=== PATIENT | male | born 1990 | race Caucasian/White ===

== ENCOUNTER 2017-05-06 03:24 | Emergency (ER) | payer BC, OTHER ==
[~2017-05-06] VITALS: Ht 172.7 cm; Wt 75.4 kg
[2017-05-06 03:27] VITALS: TEMP 36.6; Ht 172.7 cm; Wt 75.4 kg
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
[2017-05-06 03:53] VITALS: BP 120/72; PULSE 98; O2SAT 98
== END 2017-05-06 03:55 | disposition home or self-care (01) ==
LOC: C.EDB 03:25 → C.EDA 03:55
DX: S00.81XA Abrasion of other part of head, initial encounter (principal); S80.812A Abrasion, left lower leg, initial encounter; Y04.0XXA Assault by unarmed brawl or fight, initial encounter; F17.210 Nicotine dependence, cigarettes, uncomplicated

== ENCOUNTER 2023-07-01 16:18 | Inpatient (IN) ==
[2023-07-01 16:59] LABS: Basophils # (auto) 0.04 K/uL (0.00-0.20); Basophils % (auto) 0.4 %; Eosinophils # (auto) 0.09 K/uL (0.00-0.50); Eosinophils % (auto) 0.8 %; Hematocrit (blood only) 42.5 % (42.0-52.0); Hemoglobin 14.5 g/dl (14.0-18.0); Immature Granulocytes # (auto) 0.02 K/uL (0.01-0.20); Immature Granulocytes % (auto) 0.2 %; Lymphocytes # (auto) 2.23 K/uL (1.20-3.40); Mean Corpuscular Hemoglobin 29.2 pg (25.0-34.0); Mean Corpuscular Hgb Conc 34.1 g/dL (32.0-36.0); Mean Corpuscular Volume 85.5 fL (80.0-100.0); Mean Platelet Volume 10.4 fL (9.4-12.4); Monocytes # (auto) 0.59 K/uL (0.11-0.59); Monocytes % (auto) 5.6 %; Neutrophils # (auto) 7.66 K/uL (1.40-6.50); Platelet Count 215 K/uL (130-400); RDW Coefficient of Variation 13.7 % (11.5-14.5); RDW Standard Deviation 42.8 fL (36.4-46.3); Red Blood Count 4.97 M/uL (4.70-6.10); White Blood Count 10.63 K/ul (4.8-10.8)
[2023-07-01 17:18] LABS: Monotest Negative (Negative)
[2023-07-01 17:20] LABS: Albumin Globulin Ratio 1.6 (0.9-2); Albumin Level 4.5 gm/dl (3.4-5.0); BUN Creatinine Ratio 18.4 (10-20); Bilirubin,Total 0.3 mg/dl (0.2-1.0); Calcium 9.3 mg/dl (8.6-10.3); Creatinine Clr Calc Pharmacy 101.5 ml/min; Est GFR (African American) 112.5 ml/min; Globulin 2.8 gm/dl (2.5-4.0); Potassium 3.7 mmol/L (3.5-5.1); Total Protein 7.3 gm/dl (6.0-8.3)
[2023-07-01 17:31] LABS: Influenza A virus by PCR Negative (Neg); Influenza B virus by PCR Negative (Neg); RSV by PCR Negative (Neg); SARS CoV2 RNA(COVID-19) Ceph NEGATIVE (Negative)
[2023-07-01 17:44] LABS: Lyme Ab IgG w/WB Rflx Negative (Negative)
--- NOTE | 2023-07-01 17:48 | XRay Report ---
XR chest 1V not portable CLINICAL HISTORY: illness COMPARISON STUDY: Chest radiograph April 24, 2020. FINDINGS: Lung volumes are normal. Lungs are clear. There is no pneumothorax or pleural effusion. Car diac size is normal. Mediastinal contours are normal. There is no evidence for pulmonary edema. IMPRESSION: No acute cardiopulmonary findings. ACT 112: Negative or not required by law. Electronically signed by: Naeem Branham M.D. 07/01/2023 5:47 PM
--- NOTE | 2023-07-01 17:58 | Emergency Department Note ---
Impression & Plan Weakness, Anxiety, Lyme disease, Mood disorder ED Provider Note NAME: NELI ARZOLA AGE: 32 SEX: M : 1990 ARRIVES VIA: Walk-In INFORMANT: Patient ED PROVIDER(S): Johnny Gaines DO CHIEF COMPLAINT: weak and tired HPI: Patient is a 32-year-old male who presents to the ER following feeling weak and rundown. Symptoms of been present for the past 3 weeks. He notes he feels very anxious and stressed. Denies any headache or change in vision. No chest pain or shortness of breath. No belly pain, nausea, vomiting, or diarrhea. No dysuria, urgency or frequency. No other exacerbating or remitting factors. Patient questions if this is his Lyme's disease which she had once when he was 19. 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 No recent tick bites. PAST MEDICAL HISTORY:See Below PAST SURGICAL HISTORY:See Below FAMILY HISTORY:See Below SOCIAL HISTORY:See Below HOME MEDICATIONS:See Below ALLERGIES:See Below VITALS:See Below PHYSICAL EXAMINATION: GENERAL: Sitting up in bed, alert, well appearing, well nourished, no distress, non-toxic EYE EXAM: normal conjunctiva. PERRL and EOM's intact. OROPHARYNX: no exudate, no erythema, lips, buccal mucosa, and tongue normal and mucous membranes are moist NECK: supple, no nuchal rigidity, no adenopathy, non-tender LUNGS: Clear to auscultation. Normal chest wall mechanics HEART: no murmurs, S1 normal and S2 normal ABDOMEN: abdomen soft, non-tender, normo-active bowel sounds, no masses, no rebound or guarding. BACK: Back is symmetrical on inspection and there is no deformity, no midline tenderness, no CVA tenderness. SKIN: no rashes and no bruising UPPER EXTREMITIES: upper extremities are grossly normal. LOWER EXTREMITIES: No pitting edema. NEURO EXAM: Normal sensorium, cranial nerves II-XII intact, normal speech, no weakness of arms, no weakness of legs. No drift. Finger to nose intact. Gross sensation intact. MEDICAL DECISION MAKING: Patient is a 32-year-old male who presents ER for the above-stated complaint. IV was established blood work was obtained. Labs show no significant leukocytosis or anemia. BMP along with LFTs bilirubin was unremarkable. UA was clean. Doxycycline was given due to the equivocal IgM with the diffuse myalgias and arthralgias. He is also having hallucinations and does not want to come in from a psychiatric standpoint. He was discussed with 3 S. and admitted for further work-up. Will continue doxycycline 100 mg twice a day for 10 days with the equivocal Lyme testing. Triage Nursing notes reviewed. Limited review of prior medical records performed Vital Signs: reviewed and remarkable for no significant abnormalities Differential diagnosis: Infection, dehydration, metabolic abnormality, hypo/hyperglycemia, electrolyte disturbance, anemia, hypoxia, cardiac sources, intracerebral event, toxicologic, neurologic, as well as other pathologies. ER treatment provided: See below Diagnostics interpreted by me include EKG and cardiac monitoring as listed belo w: -Cardiac Monitoring: An order was placed for continuous cardiac monitoring. The monitor shows a rate of 70 with sinus rhythm. -ECG: none -Laboratory studies:Interpreted by me as stated above in MDM and shown below. Imaging studies: Xrays: As interpreted by me: Portable AP upright 1 view chest shows no focal infiltrate CTs show: none Consultation(s): As described in MDM Procedures:none Critical Care: None Past Med/Surg History Medical History Anxiety History of substance abuse in remission Family History Other Family history non-contributory Social History Smoking Status: Never smoker Tobacco Type: Cigarettes Preferred Language: Welsh Feels Safe at Home: Yes Gender Identity: Male Allergies Allergies Allergy/AdvReac Type Severity Reaction Status Date / Time naloxone AdvReac Severe shortness Unverified 08/14/20 21:27 of breath/rash Home Meds Home Medications Medication Instructions Recorded Confirmed buprenorphine HCl 8 mg sublingual 24 mg sublingual DAILY 04/23/20 07/01/23 tablet acetaminophen 325 mg tablet 650 mg PO QID PRN Pain 08/14/20 07/01/23 Previous Rx's Medication Instructions Recorded hydroxyzine HCl 25 mg tablet 25 mg PO TID PRN anxiety #14 tabs 06/29/23 doxycycline hyclate 100 mg tablet 100 mg PO BID 10 days #20 tabs 07/01/23 Results & Data (ED) Vital Signs Vital Signs - 24 hr 07/01/23 16:28 07/01/23 17:14 07/01/23 20:46 Temperature 36.3 C L Temperature Source Temporal Artery Scan Pulse Rate 75 Pulse Rate [Finger] 76 67 Respiratory Rate 16 18 Respiratory Effort / Characteristics Non-Labored Respiratory Depth Normal Blood Pressure 158/85 H Blood Pressure [Left Arm] 154/88 H 160/100 H Blood Pressure Mean 109 Blood Pressure Mean [Left Arm] 110 120 Blood Pressure Position [Left Arm] Lying Pulse Oximetry 97 99 100 Oxygen Delivery Method Room Air Room Air Room Air Sepsis Recent Fever Within 48 Hours No Sepsis New/Unexplained Change in Mental Status No Sepsis Action Taken by Nursing No Action Required 07/01/23 23:28 Temperature Temperature Source Pulse Rate Pulse Rate [Finger] Respiratory Rate Respiratory Effort / Characteristics Respiratory Depth Blood Pressure Blood Pressure [Left Arm] Blood Pressure Mean Blood Pressure Mean [Left Arm] Blood Pressure Position [Left Arm] Pulse Oximetry Oxygen Delivery Method Room Air Sepsis Recent Fever Within 48 Hours Sepsis New/Unexplained Change in Mental Status Sepsis Action Taken by Nursing Laboratory Data 07/01/23 16:40 07/01/23 16:40 Lab Results 07/01/23 07/01/23 07/01/23 Range/Units 16:38 16:40 16:40 WBC 10.63 (4.8-10.8) K/ul RBC 4.97 (4.70-6.10) M/uL Hgb 14.5 (14.0-18.0) g/dl Hct 42.5 (42.0-52.0) % MCV 85.5 (80.0-100.0) fL MCH 29.2 (25.0-34.0) pg MCHC 34.1 (32.0-36.0) g/dL RDW Std Deviation 42.8 (36.4-46.3) fL RDW Coeff of Vidya 13.7 (11.5-14.5) % Plt Count 215 (130-400) K/uL MPV 10.4 (9.4-12.4) fL Immature Gran % (Auto) 0.2 % Neut % (Auto) 72.0 % Lymph % (Auto) 21.0 % [place] % (Auto) 5.6 % Eos % (Auto) 0.8 % Baso % (Auto) 0.4 % Neut # (Auto) 7.66 H (1.40-6.50) K/uL Lymph # (Auto) 2.23 (1.20-3.40) K/uL [place] # (Auto) 0.59 (0.11-0.59) K/uL Eos # (Auto) 0.09 (0.00-0.50) K/uL Baso # (Auto) 0.04 (0.00-0.20) K/uL Immature Gran # (Auto) 0.02 (0.01-0.20) K/uL Sodium (136-145) mmol/L Potassium (3.5-5.1) mmol/L Chloride (98-107) mmol/L Carbon Dioxide (21-32) mmol/L Anion Gap (3-11) BUN (6-23) mg/dl Creatinine (0.6-1.4) mg/dl Est Cr Clr Drug Dosing ml/min Est GFR ( Amer) ml/min Est GFR (Non-Af Amer) ml/min BUN/Creatinine Ratio (10-20) Glucose (70-99(Fasting)) mg/dl Calcium (8.6-10.3) mg/dl Total Bilirubin (0.2-1.0) mg/dl AST (13-39) U/L ALT (7-52) U/L Alkaline Phosphatase (34-104) U/L Total Protein (6.0-8.3) gm/dl Albumin (3.4-5.0) gm/dl Globulin (2.5-4.0) gm/dl Albumin/Globulin Ratio (0.9-2) Urine Color Urine Appearance (Clear) Urine pH (4.5-7.5) Ur Specific [place] (1.000-1.030) Urine Protein (Negative) Urine Glucose (UA) (Negative) Urine Ketones (Negative) Urine Blood (Negative) Urine Nitrite (Negative) Urine Bilirubin (Negative) Urine Urobilinogen (Negative) Ur Leukocyte Esterase (Negative) Salicylates (3.0-30) mg/dl Urine Opiates Screen (Neg) Ur Methadone, Qual (Neg) Acetaminophen (10-30) ug/ml Urine Barbiturates (Neg) Ur Phencyclidine (PCP) (Neg) U Amphetamin/Meth Scrn (Neg) MDMA (Ecstasy) Screen (Neg) U Benzodiazepines Scrn (Neg) Ur Cocaine Metabolite (Neg) U Marijuana (THC) Screen (Neg) Ethyl Alcohol mg/dL (<10.0) mg/dl Lyme Disease IgG Ab Negative (Negative) Lyme Disease IgM Ab Equivocal A (Negative) SARS-CoV-2 (PCR) NEGATIVE (Negative) Monoscreen Negative (Negative) Influenza Type A (PCR) Negative (Neg) Influenza Type B (PCR) Negative (Neg) RSV (RT-PCR) Negative (Neg) 07/01/23 07/01/23 07/01/23 Range/Units 16:40 19:24 19:24 WBC (4.8-10.8) K/ul RBC (4.70-6.10) M/uL Hgb (14.0-18.0) g/dl Hct (42.0-52.0) % MCV (80.0-100.0) fL MCH (25.0-34.0) pg MCHC (32.0-36.0) g/dL RDW Std Deviation (36.4-46.3) fL RDW Coeff of Vidya (11.5-14.5) % Plt Count (130-400) K/uL MPV (9.4-12.4) fL Immature Gran % (Auto) % Neut % (Auto) % Lymph % (Auto) % [place] % (Auto) % Eos % (Auto) % Baso % (Auto) % Neut # (Auto) (1.40-6.50) K/uL Lymph # (Auto) (1.20-3.40) K/uL [place] # (Auto) (0.11-0.59) K/uL Eos # (Auto) (0.00-0.50) K/uL Baso # (Auto) (0.00-0.20) K/uL Immature Gran # (Auto) (0.01-0.20) K/uL Sodium 137 (136-145) mmol/L Potassium 3.7 (3.5-5.1) mmol/L Chloride 102 (98-107) mmol/L Carbon Dioxide 28 (21-32) mmol/L Anion Gap 7 (3-11) BUN 19 (6-23) mg/dl Creatinine 1.03 (0.6-1.4) mg/dl Est Cr Clr Drug Dosing 101.5 ml/min Est GFR ( Amer) 112.5 ml/min Est GFR (Non-Af Amer) 97.0 ml/min BUN/Creatinine Ratio 18.4 (10-20) Glucose 99 (70-99(Fasting)) mg/dl Calcium 9.3 (8.6-10.3) mg/dl Total Bilirubin 0.3 (0.2-1.0) mg/dl AST 18 (13-39) U/L ALT 12 (7-52) U/L Alkaline Phosphatase 62 (34-104) U/L Total Protein 7.3 (6.0-8.3) gm/dl Albumin 4.5 (3.4-5.0) gm/dl Globulin 2.8 (2.5-4.0) gm/dl Albumin/Globulin Ratio 1.6 (0.9-2) Urine Color Yellow Urine Appearance Clear (Clear) Urine pH 7.5 (4.5-7.5) Ur Specific [place] 1.010 (1.000-1.030) Urine Protein Negative (Negative) Urine Glucose (UA) Negative (Negative) Urine Ketones Negative (Negative) Urine Blood Negative (Negative) Urine Nitrite Negative (Negative) Urine Bilirubin Negative (Negative) Urine Urobilinogen Negative (Negative) Ur Leukocyte Esterase Negative (Negative) Salicylates (3.0-30) mg/dl Urine Opiates Screen Neg (Neg) Ur Methadone, Qual Neg (Neg) Acetaminophen (10-30) ug/ml Urine Barbiturates Neg (Neg) Ur Phencyclidine (PCP) Neg (Neg) U Amphetamin/Meth Scrn Neg (Neg) MDMA (Ecstasy) Screen Neg (Neg) U Benzodiazepines Scrn Neg (Neg) Ur Cocaine Metabolite Neg (Neg) U Marijuana (THC) Screen Neg (Neg) Ethyl Alcohol mg/dL (<10.0) mg/dl Lyme Disease IgG Ab (Negative) Lyme Disease IgM Ab (Negative) SARS-CoV-2 (PCR) (Negative) Monoscreen (Negative) Influenza Type A (PCR) (Neg) Influenza Type B (PCR) (Neg) RSV (RT-PCR) (Neg) 07/01/23 07/01/23 Range/Units 20:31 20:31 WBC (4.8-10.8) K/ul RBC (4.70-6.10) M/uL Hgb (14.0-18.0) g/dl Hct (42.0-52.0) % MCV (80.0-100.0) fL MCH (25.0-34.0) pg MCHC (32.0-36.0) g/dL RDW Std Deviation (36.4-46.3) fL RDW Coeff of Vidya (11.5-14.5) % Plt Count (130-400) K/uL MPV (9.4-12.4) fL Immature Gran % (Auto) % Neut % (Auto) % Lymph % (Auto) % [place] % (Auto) % Eos % (Auto) % Baso % (Auto) % Neut # (Auto) (1.40-6.50) K/uL Lymph # (Auto) (1.20-3.40) K/uL [place] # (Auto) (0.11-0.59) K/uL Eos # (Auto) (0.00-0.50) K/uL Baso # (Auto) (0.00-0.20) K/uL Immature Gran # (Auto) (0.01-0.20) K/uL Sodium (136-145) mmol/L Potassium (3.5-5.1) mmol/L Chloride (98-107) mmol/L Carbon Dioxide (21-32) mmol/L Anion Gap (3-11) BUN (6-23) mg/dl Creatinine (0.6-1.4) mg/dl Est Cr Clr Drug Dosing ml/min Est GFR ( Amer) ml/min Est GFR (Non-Af Amer) ml/min BUN/Creatinine Ratio (10-20) Glucose (70-99(Fasting)) mg/dl Calcium (8.6-10.3) mg/dl Total Bilirubin (0.2-1.0) mg/dl AST (13-39) U/L ALT (7-52) U/L Alkaline Phosphatase (34-104) U/L Total Protein (6.0-8.3) gm/dl Albumin (3.4-5.0) gm/dl Globulin (2.5-4.0) gm/dl Albumin/Globulin Ratio (0.9-2) Urine Color Urine Appearance (Clear) Urine pH (4.5-7.5) Ur Specific [place] (1.000-1.030) Urine Protein (Negative) Urine Glucose (UA) (Negative) Urine Ketones (Negative) Urine Blood (Negative) Urine Nitrite (Negative) Urine Bilirubin (Negative) Urine Urobilinogen (Negative) Ur Leukocyte Esterase (Negative) Salicylates < 3.0 L (3.0-30) mg/dl Urine Opiates Screen (Neg) Ur Methadone, Qual (Neg) Acetaminophen < 3 L (10-30) ug/ml Urine Barbiturates (Neg) Ur Phencyclidine (PCP) (Neg) U Amphetamin/Meth Scrn (Neg) MDMA (Ecstasy) Screen (Neg) U Benzodiazepines Scrn (Neg) Ur Cocaine Metabolite (Neg) U Marijuana (THC) Screen (Neg) Ethyl Alcohol mg/dL < 10.0 (<10.0) mg/dl Lyme Disease IgG Ab (Negative) Lyme Disease IgM Ab (Negative) SARS-CoV-2 (PCR) (Negative) Monoscreen (Negative) Influenza Type A (PCR) (Neg) Influenza Type B (PCR) (Neg) RSV (RT-PCR) (Neg) Administered Medications Discontinued Medications Doxycycline Hyclate (Doxycycline Hyclate 100 Mg Cap) 100 mg PO NOW STA Stop: 07/01/23 19:13 Last Admin: 07/01/23 19:20 Dose: 100 mg Documented By: Imaging Data Radiologist's Impression: Chest X-Ray 07/01/23 16:33 XR chest 1V not portable CLINICAL HISTORY: illness COMPARISON STUDY: Chest radiograph April 24, 2020. FINDINGS: Lung volumes are normal. Lungs are clear. There is no pneumothorax or pleural effusion. Cardiac size is normal. Mediastinal contours are normal. There is no evidence for pulmonary edema. IMPRESSION: No acute cardiopulmonary findings. ACT 112: Negative or not required by law. Electronically signed by: Naeem Branham M.D. 07/01/2023 5:47 PM Discharge Plan Visit Data Chief Complaint: Illness Stated Complaint: FATIGUE, MENTAL FOG - LYME DISEASE ED Provider: Johnny Gaines Discharge Problem: Weakness, Anxiety, Lyme disease, Mood disorder Patient Disposition: Admitted As Inpatient Discharge Instructions Interventions: ED Discharge Assessment Last Done: 07/01/23 23:28
[2023-07-01 18:05] LABS: Lyme Ab IgM w/WB Rflx Equivocal (Negative)
[2023-07-01] MEDS ORDERED: DOXYCYCLINE HYCLATE 100 MG CAP PO STA (19:12)
[2023-07-01 19:32] LABS: Appearance Urine Clear (Clear); Bilirubin Urine Negative (Negative); Blood Urine Negative (Negative); Color Urine Yellow; Glucose Urine UA Negative (Negative); Ketones Urine Negative (Negative); Leukocyte Esterase Urine Negative (Negative); Nitrite Urine Negative (Negative); Protein Urine Negative (Negative); Urobilinogen Urine Negative (Negative); pH Urine 7.5 (4.5-7.5)
[2023-07-01 20:56] LABS: Amphetamines+Metham, Urine Neg (Neg); Barbiturates, Urine Neg (Neg); Benzodiazepine, Urine Neg (Neg); Cocaine, Urine Neg (Neg); MDMA (Ecstacy), Urine Neg (Neg); Methadone, Urine Neg (Neg); Opiate, Urine Neg (Neg); Phencyclidine, Urine Neg (Neg)
[2023-07-01 21:26] LABS: Acetaminophen < 3 ug/ml (10-30); Salicylate < 3.0 mg/dl (3.0-30)
[2023-07-01] MEDS ORDERED: SODIUM CHLORIDE 0.65% NA SOLN 45 ML (OCEAN) PRN (23:59)
[2023-07-01] MEDS ORDERED: ALUMINUM/MAGNESIUM SUSP 30 ML UDC PO PRN (23:59)
[2023-07-01] MEDS ORDERED: MAGNESIUM HYDROXIDE SUSP 30 ML UDC PO PRN (23:59)
[2023-07-01] MEDS ORDERED: BISMUTH SUBSALICYLATE LIQD 236 ML PO PRN (23:59)
[2023-07-01] MEDS ORDERED: ACETAMINOPHEN 325 MG TAB PO PRN (23:59)
[2023-07-02] MEDS ORDERED: cloNIDine HCL 0.1 MG TAB PO STA (00:02)
[2023-07-02] MEDS ORDERED: NICOTINE POLACRILEX 2 MG GUM MT PRN (02:21)
[2023-07-02] MEDS: NICOTINE 21 MG/24 HR TDSY TD SCH (10:42)
[2023-07-02] MEDS: hydrOXYzine HCl 25 MG TAB PO PRN ×2 (10:43→20:59)
--- NOTE | 2023-07-02 13:13 | History & Physical ---
Date of Service July 02, 2023 Impression / Recommendations Impression 32 y/o man with a history of opioid use disorder on buprenorphine maintenance and methamphetamine use disorder abstinent for 5 months but no other psychiatric history who presents with ideas of reference, delusions that specific others "aren't real" (but not that those people when he sees them are impostors, so not actually a Capgras-type delusion), and preoccupation with a belief that Lyme disease has affected his brain (which given his history of previous infection and current work as a technician terminal and repeater cannot be ruled out as true). All available data supports that he has not used stimulants or other substances that could precipitate psychosis recently. He exhibits fairly good insight into the likelihood that his beliefs and concerns aren't supported by reality and as a result does not feel impelled to act on them. At this point the differential diagnostic possibilities abound and range from primary thought disorders such as schizophreniform disorder, through delusional disorder or brief reactive psychosis, to organic brain syndromes (including Lyme borreliosis). Although he doesn't present as at all manic or significantly depressed, his impulsively lending his car to a stranger is noteworthy and could indicate a mood disorder with psychotic features. The use of psychoactive substances not reported on our toxicology screen cannot be ruled out. He may already be exhibiting a response to risperidone given on arrival to the unit. (1) Unspecified psychosis not due to a substance or known physiological condition: (2) Opioid use disorder, moderate, in early remission, on maintenance therapy, dependence: (3) Methamphetamine use disorder, severe, in early remission, dependence: Plan The patient was admitted to the [facility] ([facility] unit) on q15 min checks (behavioral with suicide precautions) for safety. The patient will participate in group, recreational, and milieu therapies and will be offered additional individual and family sessions as clinically appropriate. * risperidone 1 mg QHS * labs in addition to those already done in the ED to rule out identifiable and potentially-reversible causes of psychosis, including * RPR * HIV * ESR * ceruloplasmin * gliadin antibodies * folate * B12 * vitamin D * labs to establish baseline values in anticipation of future antipsychotic use, including * fasting lipids panel * glycohemoglobin level Inventory Assets Strengths: supportive relationships, has local supports,voluntary, fair insight, i ntelligent, employed, Needs: safety and stabilization, diagnostic assessment for recent-onset psychosis, medication adjustment, additional coping skills Suicide Risk Level Suicide Risk Level: Moderate (q15 min suicide checks) Suicide Risk Level Comments: denies any suicidal thoughts; behavior prior to admission appears to have been unpredictable and impulsive Risk Factors Assessment Male: Yes : Yes Do You Have Access To A Gun?: No Health Problems: No Mental Health Diagnoses: No Substance Use Disorders: Yes Previous Attempt: No Family History of Suicide: No Previous Psychiatric Hospitalization: No Hopelessness: No Protective Factors Assessment : Yes (refers to girlfriend as his ) Responsible for Young Children: Yes Employed: Yes Stable Relationships: Yes Supportive Family: Yes Good Rapport with Provider: Yes Psychiatric History Identifying Data NELI ARZOLA is a 32-year-old M who currently lives with his girlfriend and their 4 children, including twins, has a history of methamphetamine and opioid use disorders, and was admitted on 07/01/23 23:01 on a 201 voluntary commitment for psychosis. Chief Complaint "I was feeling like my maybe isn't real". History of Present Illness As part of a thorough review of the available medical records, I have read and confirmed the following notes by the ED physicians on the day of admission and 2 days previously: 06/19/2023 "The patient is a pleasant 40-year-old gentleman with a past medical history of remote substance abuse on buprenorphine, history of anxiety who presents to the emergency department via walk-in, by security after the patient was upstairs in labor and delivery visiting with his partner who had delivered twins recently. Per bystanders the patient became acutely restless and confused and had made statements such as feeling as though the patient's partner was not the mother of the children and that his mother had been though she was present in the hospital room. Patient apparently had left the room abruptly and was encountered by security in the parking lot where they noted he had some peculiar behavior but it was not as severe as was described to them. He agreed to come to the emergency department for evaluation and upon evaluation by case management and this provider he had rapidly improved and exhibited rational thinking, insight into his condition. On my evaluation patient is well-appearing in no distress, afebrile with blood pressure 160s/90s and vital signs otherwise stable. He acknowledges underlying anxiety and restlessness. He denies any depression or hopelessness. In fact he feels hopeful that he can get his anxiety under control. He acknowledges that he may have felt additional stress related to the recent of twins. He does not feel he needs inpatient psychiatric t reatment. He is interested and was provided with outpatient resources for follow-up. Patient previously had been on medications but knowledges he did not continue follow-up for these but had been on hydroxyzine as well as Lexapro. We did agree to provide a short term prescription of hydroxyzine for flares of anxiety as needed. Otherwise, plan for continued outpatient follow-up. Psychiatric case advocate did complete evaluation and there is no indication for involuntary psychiatric treatment at this time." "Following the patient's discharge we were informed that in the process of the patient's erratic behavior and abruptly leaving the hospital he had given his car and car keys to an individual. Subsequently security had become involved and ensured that the patient's car was returned to him. Additionally, following the patient's discharge we were provided with more details from security regarding report from family and staff upstairs. They report that they were told that the patient became erratic and had made comments that were delusional and that he thought that his partner who had delivered the twins was not the twins mother after all. Additionally they reported that the patient insisted that his mother was but she was present in the room. Security confirms that when he comes the patient in the parking lot to bring him to the emergency department he appeared peculiar but did not have the severity of symptoms that was described to them. Moreover, upon our evaluation the emergency department the patient had rapidly improved and was appropriate and insightful. Thus, new information does not change assessment and that it was suspected that the patient experienced a stress reaction in the setting of underlying anxiety. Further, the patient was reported to have returned upstairs to visit with family." 07/01/2023: "Patient is a 32-year-old male who presents to the ER following feeling weak and rundown. Symptoms of been present for the past 3 weeks. He notes he feels very anxious and stressed. Denies any headache or change in vision. No chest pain or shortness of breath. No belly pain, nausea, vomiting, or diarrhea. No dysuria, urgency or frequency. No other exacerbating or remitting factors. Patient questions if this is his Lyme's disease which she had once when he was 19. 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 No recent tick bites. Labs show no significant leukocytosis or anemia. BMP along with LFTs bilirubin was unremarkable. UA was clean. Doxycycline was given due to the equivocal IgM with the diffuse myalgias and arthralgias. He is also having hallucinations and does not want to come in from a psychiatric standpoint. He was discussed with 3 S. and admitted for further work-up. Will continue doxycycline 100 mg twice a day for 10 days with the equivocal Lyme testing." and the following notes by the ED psychiatric human services case manager on the day of admission and 2 days previously: 06/29/2023: "Met with the patient to complete Brief and Suicide Risk Assessments. The patient denies any suicidal or homicidal ideations but reports high levels of anxiety where he feels overwhelmed and cant breathe. He reports a long trauma history related to his father not being around, being in a 14 year relationship where his girlfriend cheated on him and being in and out of group home for stealing. He reports he compares his current girlfriend to his previous one and feels regret and guilt about that as well as guilt for not being around his previous girlfriend due to being in and out of group home (states he cant blame her looking back for cheating on him). The patient reports he is looking for either a psychiatrist or psychologist who can help him get to the bottom of his trauma history and possibly start him on medication for his anxiety (reports having a counselor in the past but they never got too deep into his trauma history). Patient able to stay on topic during assessment and answers questions appropriately." "At the request of Dr. Rush, spoke with Juancho in Security regarding the patients presentation to them. Juancho reports the patient was making comments to his girlfriend and nursing staff that he doesnt believe the girlfriend is real and he created her. Juancho also reports the patient made statements that his mother was killed in a house fire but she is currently on the mother / baby unit. Juancho reports when the patient was outside, he made comments he wasnt sure if he was actually the father of his children and that he wasnt sure if he wanted to be with the mother any longer. Juancho reports when they initially had contact with the patient on the mother / baby unit, he was agreeable to being evaluated in the ER, but then appeared to possibly be responding to internal stimuli and stated he didnt want that and left the building. He reports they followed him outside and when he got there, he gave his car keys to someone and stated he had been selfish in his life and needed to be generous to him. Juancho reports the patients demeanor changed once he was brought back into the ER (willingly) and that the patient had been back to the mother / baby unit (no issues) and was currently in the parking lot and actually left during this conversation. Dr. Rush updated and feels the patient was under better behavioral control when he and CM met with the patient and that this did not change the disposition." 07/01/2023: "Pt was seen in ED 2 days ago. He states he has been feeling slightly better than he was then, but is still struggling with thinking that people in his life are not real or that he himself is not real. He states he thinks his girlfriend and babies aren't real or his grandmother. He also stated 2 days ago that his mother had in a house fire, but she is alive and lives locally. Pt reports thinking he said this because he was seeing all kinds of "signs" that pointed to fire and and therefore his brain could not stop thinking that his mother had in a fire. Pt reports seeing "signs" everywhere recently. He states he has been having these thoughts/feelings for approximately 2 months now and that they have been getting strong/worse. Pt states he keeps thinking that something traumatic has happened and he therefore is imagining all of these people in his life so that he doesn't have to deal with the trauma. Struggles to determine what is real and what's not. Pt also struggles with anxiety, though he has no official mental health diagnosis. He reports past drug abuse of "everything" but mostly meth. He states he has been clean for approximately 5 months now. He is prescribed Subutex, 8mg 2 3/4 times per day.": Review of the medical record reveals no previous or outside psychiatric records. Appears to be on buprenorphine at a fairly high dose, without naloxone (due to reported naloxone allergy). Review of pertinent labs reveals they are significant for equivocal Lyme IgM antibody test; more-detailed test results are pending. Urine toxicology screen that was negative for all tested substrates. BAL was <10 mg/dL. Pt presented to the ED as above on June 29 2023, then again on the day of admission 2 days later. This took place in the context of of twins around which time he made odd statements including the feeling that his girlfriend (to whom he referred as his "" while telling me of this) and their twins "weren't real" and that his own mother (who was present in the room) had in a fire. He handed his car keys over to someone in the parking lot so they could do some errands, apparently on the basis of his having acted selfishly in the past and feeling a need to atone for that. The car was found at [facility] where th e person had said he needed to go and the person returned it to pt. Despite the odd statements and behaviors he was seen as exhibiting fairly appropriate behavioral control and insight and referred for outpatient treatment. Pt returned last night voicing concern that Lyme disease (for which he had been treated with 2 weeks of doxycycline at age 19 after a witnessed tick bite followed by target rash) had affected his brain leading to "weird thoughts" over the past 2 months. He voiced being preoccupied with "signs everywhere". These include "vipin numbers" such as noticing that the time or date on his phone is the same digit repeated (e.g., 8/8, 2:22, 4:44, etc) or when digits are repeated in callers' phone numbers, on license plates, etc. He isn't sure what meaning these contain but has "spent lots of time trying to figure it out". He finds his attention drawn to certain arrangements of objects or juxtaposition of colors then "wondering if it might mean something". He intermittently has "the feeling that people might not be real", especially his girlfriend and his mother. He currently says that he'd wondered if the twins were actually his children, not actually whether they were real or not. Pt is preoccupied that he "probably had some sort of trauma" and needs to "get to the bottom of that" in order to move ahead in life. However, he can't think of any particular trauma (his various incarcerations he sees as more just as inconvenient things that occasionally happen to a person). He presumes there must be some such thing because he thoughts seem so weird to him "or else it must be Lyme". He denies hallucinations, though some recent observers at this hospital thought he appeared to be responding to internal stimuli. Has used "all the drugs", but especially methamphetamine, since his teens and attributes many problems to this. He says he's been completely abstinent "except for a little alcohol" for the past 5 months. He thinks he "had all kinds of weird experiences similar to the currently-reported ones while using and was optimistic when he didn't have any for the first couple of months after he stopped using "but they've come back". Reports "feeling much better this morning", which he attributes to "the antibiotic they gave me last night". He did in fact get doxycycline but also got 1 mg risperidone ODT on arrival to the unit. Past Psychiatric History Previous Psych History: [facility] only (methamphetamine, opioid) Current Psychiatric Diagnosis: psychosis NOS Previous Psych Admissions: none Do You Have Access To A Gun?: No History of Previous Suicide Attempt: No Allergies Allergy/AdvReac Type Severity Reaction Status Date / Time naloxone AdvReac Severe shortness Unverified 08/14/20 21:27 of breath/rash Home Medications Medication Instructions Recorded Confirmed Type buprenorphine HCl 8 mg sublingual 24 mg sublingual DAILY 04/23/20 07/01/23 History tablet acetaminophen 325 mg tablet 650 mg PO QID PRN Pain 08/14/20 07/01/23 History hydroxyzine HCl 25 mg tablet 25 mg PO TID PRN anxiety #14 tabs 06/29/23 07/01/23 Rx doxycycline hyclate 100 mg tablet 100 mg PO BID 10 days #20 tabs 07/01/23 Rx Family History Family History of: Depression, Other Mood Disorders, Anxiety, Psychosis/ThoughtDisorder, Alcoholism/Drug Abuse and Bipolar Alcohol History Hx of Alcohol Use Over the Past 12 Months: Yes AUDIT Total Score: 4 Smoking Use Have You Smoked or Used Tobacco Products in the Last 30 Days: Yes tobacco type: cigarettes and smokeless tobacco Smoking Status: Current every day smoker Smoking packs per day: 1 Substance History Hx of Prescription Med Misuse Over the Past 12 Months: No Hx of Over the Counter Med Misuse Over the Past 12 Months: No Hx of Inhalent Misuse Over the Past 12 Months: No Hx of Organic Substance Use Over the Past 12 Months: No Hx of Illegal Substances/Street Drug Use Over Past 12 Months: Yes Problems as a Result of Past Substance Use: Job Loss and Arrested Personal History Living Arrangements: Home Living Arrangements Comments: patient lives in a trailer Highest Grade Completed: G.E.D. Marital Status: Living w/ Signif. Other Number Of Children: 4 Beliefs That Will Affect Care: None Patient History Medical History (Updated 07/02/23 @ 14:21 by Casimiro Robledo MD) Anxiety Family history non-contributory History of substance abuse in remission Methamphetamine use disorder, severe, in early remission, dependence Opioid use disorder, moderate, in early remission, on maintenance therapy, dependence Unspecified psychosis not due to a substance or known physiological condition Weakness Family History Other Family history non-contributory Social History Smoking Status: Current every day smoker Tobacco Type: Cigarettes Preferred Language: Kinyarwanda Communication Ability: Effective Nursing Staff Development Coordinator Required: No Beliefs That Will Affect Care: None Feels Safe at Home: Yes Gender Identity: Male Assistive Devices: None Review of Systems Psychiatric: as per Subjective / HPI, + anxiety, + difficulty concentrating and + problem reported (ideas of reference) Physical Exam Psychiatric: Orientation: alert, oriented to person, oriented to place, oriented to time and cooperative (pleasant) Apperance: appropriately dressed and appropriately groomed Eye Contact: + fair eye contact Motor Behavior: steady gait and station and no abnormal motor movements; no psychomotor agitation and no psychomotor retardation Speech: normal rate/rhythm/volume of speech Affect: + constricted affect Mood: + anxious mood Thought Process: linear/logical thought process, clear/coherent thought process and thought association intact Thought Content: + delusions and + ideas of reference Suicidal Thoughts: denies suicidal thoughts, denies suicidal plan and denies suicidal intent Homicidal Thoughts: denies homicidal thoughts Hallucinations: no auditory hallucinations (but observers reported acting as if he were responding to internal stimuli) and no visual hallucinations Cognition: recent memory grossly intact, remote memory grossly intact, attention grossly intact and language grossly intact Estimated Intelligence: average estimated intelligence Insight: + fair insight (realizes ideas of reference likely not reality-based) Judgment: + fair judgement Vital Signs (Past 24 Hours): Last Vital Signs Temp 36.4 C L 07/02/23 06:47 Pulse 69 07/02/23 06:47 Resp 16 07/02/23 06:47 BP 127/86 07/02/23 06:47 Pulse Ox 100 07/02/23 00:11 O2 Del Method Room Air 07/02/23 00:11 Exam Statement: A physical exam was performed in the ED for the purposes of medical clearance. I accept that physical as correct and adequate for the purposes of the inpatient physical exam. Results & Data ([facility]) Laboratory Results Laboratory Results - last 24 hr 07/01/23 07/01/23 07/01/23 16:38 16:40 16:40 WBC 10.63 RBC 4.97 Hgb 14.5 Hct 42.5 MCV 85.5 MCH 29.2 MCHC 34.1 RDW Std Deviation 42.8 RDW Coeff of Vidya 13.7 Plt Count 215 MPV 10.4 Immature Gran % (Auto) 0.2 Neut % (Auto) 72.0 Lymph % (Auto) 21.0 [place] % (Auto) 5.6 Eos % (Auto) 0.8 Baso % (Auto) 0.4 Neut # (Auto) 7.66 H Lymph # (Auto) 2.23 [place] # (Auto) 0.59 Eos # (Auto) 0.09 Baso # (Auto) 0.04 Immature Gran # (Auto) 0.02 Sodium Potassium Chloride Carbon Dioxide Anion Gap BUN Creatinine Est Cr Clr Drug Dosing Est GFR ( Amer) Est GFR (Non-Af Amer) BUN/Creatinine Ratio Glucose Calcium Total Bilirubin AST ALT Alkaline Phosphatase Total Protein Albumin Globulin Albumin/Globulin Ratio Urine Color Urine Appearance Urine pH Ur Specific [place] Urine Protein Urine Glucose (UA) Urine Ketones Urine Blood Urine Nitrite Urine Bilirubin Urine Urobilinogen Ur Leukocyte Esterase Salicylates Urine Opiates Screen Ur Methadone, Qual Acetaminophen Urine Barbiturates Ur Phencyclidine (PCP) U Amphetamin/Meth Scrn MDMA (Ecstasy) Screen U Benzodiazepines Scrn Ur Cocaine Metabolite U Marijuana (THC) Screen Ethyl Alcohol mg/dL Lyme Disease IgG Ab Negative Lyme IgG (Western Blot) Lyme IgG 18 kDa Band Lyme IgG 23 kDa Band Lyme IgG 28 kDa Band Lyme IgG 30 kDa Band Lyme IgG 39 kDa Band Lyme IgG 41 kDa Band Lyme IgG 45 kDa Band Lyme IgG 58 kDa Band Lyme IgG 66 kDa Band Lyme IgG 93 kDa Band Lyme IgM Ab (WB) Lyme Disease IgM Ab Equivocal A Lyme IgM 23 kDa Band Lyme IgM 39 kDa Band Lyme IgM 41 kDa Band SARS-CoV-2 (PCR) NEGATIVE Monoscreen Negative Influenza Type A (PCR) Negative Influenza Type B (PCR) Negative RSV (RT-PCR) Negative 07/01/23 07/01/23 07/01/23 16:40 16:40 19:24 WBC RBC Hgb Hct MCV MCH MCHC RDW Std Deviation RDW Coeff of Vidya Plt Count MPV Immature Gran % (Auto) Neut % (Auto) Lymph % (Auto) [place] % (Auto) Eos % (Auto) Baso % (Auto) Neut # (Auto) Lymph # (Auto) [place] # (Auto) Eos # (Auto) Baso # (Auto) Immature Gran # (Auto) Sodium 137 Potassium 3.7 Chloride 102 Carbon Dioxide 28 Anion Gap 7 BUN 19 Creatinine 1.03 Est Cr Clr Drug Dosing 101.5 Est GFR ( Amer) 112.5 Est GFR (Non-Af Amer) 97.0 BUN/Creatinine Ratio 18.4 Glucose 99 Calcium 9.3 Total Bilirubin 0.3 AST 18 ALT 12 Alkaline Phosphatase 62 Total Protein 7.3 Albumin 4.5 Globulin 2.8 Albumin/Globulin Ratio 1.6 Urine Color Yellow Urine Appearance Clear Urine pH 7.5 Ur Specific [place] 1.010 Urine Protein Negative Urine Glucose (UA) Negative Urine Ketones Negative Urine Blood Negative Urine Nitrite Negative Urine Bilirubin Negative Urine Urobilinogen Negative Ur Leukocyte Esterase Negative Salicylates Urine Opiates Screen Ur Methadone, Qual Acetaminophen Urine Barbiturates Ur Phencyclidine (PCP) U Amphetamin/Meth Scrn MDMA (Ecstasy) Screen U Benzodiazepines Scrn Ur Cocaine Metabolite U Marijuana (THC) Screen Ethyl Alcohol mg/dL Lyme Disease IgG Ab Lyme IgG (Western Blot) Pending Lyme IgG 18 kDa Band Pending Lyme IgG 23 kDa Band Pending Lyme IgG 28 kDa Band Pending Lyme IgG 30 kDa Band Pending Lyme IgG 39 kDa Band Pending Lyme IgG 41 kDa Band Pending Lyme IgG 45 kDa Band Pending Lyme IgG 58 kDa Band Pending Lyme IgG 66 kDa Band Pending Lyme IgG 93 kDa Band Pending Lyme IgM Ab (WB) Pending Lyme Disease IgM Ab Lyme IgM 23 kDa Band Pending Lyme IgM 39 kDa Band Pending Lyme IgM 41 kDa Band Pending SARS-CoV-2 (PCR) Monoscreen Influenza Type A (PCR) Influenza Type B (PCR) RSV (RT-PCR) 07/01/23 07/01/23 07/01/23 19:24 20:31 20:31 WBC RBC Hgb Hct MCV MCH MCHC RDW Std Deviation RDW Coeff of Vidya Plt Count MPV Immature Gran % (Auto) Neut % (Auto) Lymph % (Auto) [place] % (Auto) Eos % (Auto) Baso % (Auto) Neut # (Auto) Lymph # (Auto) [place] # (Auto) Eos # (Auto) Baso # (Auto) Immature Gran # (Auto) Sodium Potassium Chloride Carbon Dioxide Anion Gap BUN Creatinine Est Cr Clr Drug Dosing Est GFR ( Amer) Est GFR (Non-Af Amer) BUN/Creatinine Ratio Glucose Calcium Total Bilirubin AST ALT Alkaline Phosphatase Total Protein Albumin Globulin Albumin/Globulin Ratio Urine Color Urine Appearance Urine pH Ur Specific [place] Urine Protein Urine Glucose (UA) Urine Ketones Urine Blood Urine Nitrite Urine Bilirubin Urine Urobilinogen Ur Leukocyte Esterase Salicylates < 3.0 L Urine Opiates Screen Neg Ur Methadone, Qual Neg Acetaminophen < 3 L Urine Barbiturates Neg Ur Phencyclidine (PCP) Neg U Amphetamin/Meth Scrn Neg MDMA (Ecstasy) Screen Neg U Benzodiazepines Scrn Neg Ur Cocaine Metabolite Neg U Marijuana (THC) Screen Neg Ethyl Alcohol mg/dL < 10.0 Lyme Disease IgG Ab Lyme IgG (Western Blot) Lyme IgG 18 kDa Band Lyme IgG 23 kDa Band Lyme IgG 28 kDa Band Lyme IgG 30 kDa Band Lyme IgG 39 kDa Band Lyme IgG 41 kDa Band Lyme IgG 45 kDa Band Lyme IgG 58 kDa Band Lyme IgG 66 kDa Band Lyme IgG 93 kDa Band Lyme IgM Ab (WB) Lyme Disease IgM Ab Lyme IgM 23 kDa Band Lyme IgM 39 kDa Band Lyme IgM 41 kDa Band SARS-CoV-2 (PCR) Monoscreen Influenza Type A (PCR) Influenza Type B (PCR) RSV (RT-PCR) Current Inpatient Medications Current Inpatient Medications: Current Inpatient Medications Acetaminophen (Acetaminophen 325 Mg Tab) 650 mg PO Q4H PRN PRN Reason: Headache or Minor Fever Stop: 07/31/23 23:58 Al Hydrox/Mg Hydrox/Simethicone (Aluminum/Magnesium Susp 30 Ml Udc) 30 ml PO Q4H PRN PRN Reason: GI Upset Stop: 07/31/23 23:58 Bismuth Subsalicylate (Bismuth Subsalicylate Liqd 236 Ml) 15 ml PO PRN PRN PRN Reason: Loose Stool Stop: 07/31/23 23:58 Hydroxyzine HCl (Hydroxyzine Hcl 25 Mg Tab) 50 mg PO HSZ PRN PRN Reason: Insomnia Stop: 07/31/23 23:58 Hydroxyzine HCl (Hydroxyzine Hcl 25 Mg Tab) 25 mg PO Q4H PRN PRN Reason: Anxiety Stop: 07/31/23 23:58 Last Admin: 07/02/23 10:43 Dose: 25 mg Magnesium Hydroxide (Magnesium Hydroxide Susp 30 Ml Udc) 30 ml PO DAILY PRN PRN Reason: Constipation Stop: 07/31/23 23:58 Miscellaneous (Remove Nicoderm Patch) 1 each N/A DAILY@0859 [facility]CLUDES [facility] Stop: 08/02/23 08:58 Nicotine (Nicotine 21 Mg/24 Hr Tdsy) 21 mg TD QAM COUNT INCLUDES THE [facility] Stop: 08/01/23 08:59 Last Admin: 07/02/23 10:42 Dose: 21 mg Nicotine Polacrilex (Nicotine Polacrilex 2 Mg Gum) 1 piece MT PRN PRN PRN Reason: Nicotine Withdrawal Stop: 08/01/23 02:20 Sodium Chloride (Sodium Chloride 0.65% Na Soln 45 Ml ([place])) 1 - 2 sprays NA PRN PRN PRN Reason: Nasal Dryness/Congestion Stop: 07/31/23 23:58
[2023-07-02] MEDS ORDERED: cloNIDine HCL 0.1 MG TAB PO PRN (18:15)
[2023-07-02] MEDS ORDERED: DIPHENOXYLATE/ATROPINE 2.5/0.025MG TAB PO PRN (18:15)
[2023-07-02] MEDS: cloNIDine HCL 0.1 MG TAB PO SCH (20:53)
[2023-07-02] MEDS: risperiDONE 1 MG TABLET PO SCH (20:53)
[2023-07-02] MEDS: DOXYCYCLINE HYCLATE 100 MG CAP PO SCH (20:54)
[2023-07-03] MEDS: NICOTINE 21 MG/24 HR TDSY TD SCH (08:06)
[2023-07-03] MEDS: cloNIDine HCL 0.1 MG TAB PO SCH ×4 (08:07→20:28)
[2023-07-03] MEDS: DOXYCYCLINE HYCLATE 100 MG CAP PO SCH ×2 (08:07→20:31)
[2023-07-03 09:04] LABS: Folate (Folic Acid),Ser orPlas 14.1 ng/ml (>5.38)
[2023-07-03 10:28] LABS: Estimated Average Glucose 120 mg/dl; Hemoglobin A1C 5.8 % (4.5-5.6)
--- NOTE | 2023-07-03 12:11 | Psychiatric Progress Note ---
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 All available data supports that he has not used stimulants or other substances that could precipitate psychosis recently. He exhibits fairly good insight into the likelihood that his beliefs and concerns aren't supported by reality and as a result does not feel impelled to act on them. 07/02/2023: Lyme Western blot and RPR remain pending but the balance of tests ordered yesterday were negative or noncontributory - glycohemoglobin was 5.8%. Pt continues to voice odd beliefs and to experience referential ideas. He's continued to voice the belief that his might not be real or that his mother may have (even after he's spoken with her on the phone). He has decided to go live with his mother since he has concluded that he and his can't remain (on the basis of nothing that he's able to explain to me). Affect is consistently incongruously cheerful even when discussing seemingly distressing topics. 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 I discussed this with pt at length, including the rationale for the diagnosis and how it supports the need for him to remain on the risperidone. Reports tolerating that medication with no adverse effects. Pt gave written notice of request for discharge last evening. 07/01/2023: At this point the differential diagnostic possibilities abound and range from primary thought disorders such as schizophreniform disorder, through delusional disorder or brief reactive psychosis, to organic brain syndromes (including Lyme borreliosis). Although he doesn't present as at all manic or significantly depressed, his impulsively lending his car to a stranger is noteworthy and could indicate a mood disorder with psychotic features. The use of psychoactive substances not reported on our toxicology screen cannot be ruled out. He may already be exhibiting a response to risperidone given on arrival to the unit. (1) Schizophreniform disorder: (2) Opioid use disorder, moderate, in early remission, on maintenance therapy, dependence: (3) Methamphetamine use disorder, severe, in early remission, dependence: Plan 07/02/2023: * continue risperidone 1 mg QHS * await labs not yet resulted, including * RPR * HIV * ceruloplasmin * gliadin antibodies * Lyme Western blot 07/01/2023: The patient was admitted to the [facility] ([facility]) on q15 min checks (behavioral with suicide precautions) for safety. The patient will participate in group, recreational, and milieu therapies and will be offered additional individual and family sessions as clinically appropriate. * risperidone 1 mg QHS * labs in addition to those already done in the ED to rule out identifiable and potentially-reversible causes of psychosis, including * RPR * HIV * ESR * ceruloplasmin * gliadin antibodies * folate * B12 * vitamin D * labs to establish baseline values in anticipation of future antipsychotic use, including * fasting lipids panel * glycohemoglobin level Inventory Assets Strengths: supportive relationships, has local supports,voluntary, fair insight, intelligent, employed, Needs: safety and stabilization, diagnostic assessment for recent-onset psychosis, medication adjustment, additional coping skills Suicide Risk Level Suicide Risk Level: Moderate (q15 min suicide checks) Suicide Risk Level Comments: denies any suicidal thoughts; behavior prior to admission appears to have been unpredictable and impulsive Risk Factors Assessment Male: Yes : Yes Do You Have Access To A Gun?: No Health Problems: No Mental Health Diagnoses: No Substance Use Disorders: Yes Previous Attempt: No Family History of Suicide: No Previous Psychiatric Hospitalization: No Hopelessness: No Protective Factors Assessment : Yes (refers to girlfriend as his ) Responsible for Young Children: Yes Employed: Yes Stable Relationships: Yes Supportive Family: Yes Good Rapport with Provider: Yes Interval History Identifying Information NELI ARZOLA is a 32-year-old M who currently lives with his girlfriend and their 4 children, including twins, has a history of methamphetamine and opioid use disorders, and was admitted on 07/01/23 23:01 on a 201 voluntary commitment for psychosis. Chief Complaint "I think my body has lost the ability to heal". Review of Systems Sleep Information Total Hours of Sleep: 7.25 Sleep Comments: Admitted overnight Meal Information Percent Meal Consumed - Breakfast: 100 Percent Meal Consumed - Lunch: 100 Percent Meal Consumed - Dinner: 100 Subjective Subjective Patient was seen & assessed and interval progress reviewed in a multidisciplinary team meeting with the treatment team. For details, see the "Impression" section. Physical Exam Psychiatric Orientation: alert, oriented to person, oriented to place, oriented to time and cooperative (pleasant) Apperance: appropriately dressed and appropriately groomed Eye Contact: + fair eye contact Motor Behavior: steady gait and station and no abnormal motor movements; no psychomotor agitation and no psychomotor retardation Speech: normal rate/rhythm/volume of speech Affect: + mood not congruent with affect (incongruously cheerful) Mood: + anxious mood Thought Process: + looseness of associations and + concrete thought process Thought Content: + delusions and + ideas of reference Suicidal Thoughts: denies suicidal thoughts, denies suicidal plan and denies suicidal intent Homicidal Thoughts: denies homicidal thoughts Hallucinations: no auditory hallucinations (but observers reported acting as if he were responding to internal stimuli) and no visual hallucinations Cognition: recent memory grossly intact, remote memory grossly intact, attention grossly intact and language grossly intact Estimated Intelligence: average estimated intelligence Insight: + fair insight (realizes ideas of reference likely not reality-based) Judgment: + fair judgement Vital Signs (Past 24 Hours) Last Vital Signs Temp 36.7 C 07/03/23 08:04 Pulse 71 07/03/23 12:00 Resp 18 07/03/23 08:04 BP 136/90 07/03/23 12:00 Pulse Ox 100 07/02/23 00:11 O2 Del Method Room Air 07/02/23 00:11 Results & Data ([facility]) Laboratory Results Laboratory Results - last 24 hr 07/03/23 07/03/23 07/03/23 07:42 07:42 07:42 ESR 13 Estimat Average Glucose 120 Hemoglobin A1c 5.8 H Ceruloplasmin Triglycerides 113 Cholesterol 153 LDL Cholesterol, Calc 79 VLDL Cholesterol, Calc 23 HDL Cholesterol 51 Cholesterol/HDL Ratio 3.0 Vitamin B12 25-OH Vitamin D Total Folate Gliadin (Deamidat) IgG Gliadin (Deamidat) IgA RPR HIV (1&2) Ag & Ab Conf 07/03/23 07/03/23 07/03/23 07:42 07:42 07:42 ESR Estimat Average Glucose Hemoglobin A1c Ceruloplasmin Triglycerides Cholesterol LDL Cholesterol, Calc VLDL Cholesterol, Calc HDL Cholesterol Cholesterol/HDL Ratio Vitamin B12 559 25-OH Vitamin D Total 42.8 Folate 14.10 Gliadin (Deamidat) IgG Gliadin (Deamidat) IgA RPR Pending HIV (1&2) Ag & Ab Conf 07/03/23 07/03/23 07:42 07:42 ESR Estimat Average Glucose Hemoglobin A1c Ceruloplasmin Pending Triglycerides Cholesterol LDL Cholesterol, Calc VLDL Cholesterol, Calc HDL Cholesterol Cholesterol/HDL Ratio Vitamin B12 25-OH Vitamin D Total Folate Gliadin (Deamidat) IgG Pending Gliadin (Deamidat) IgA Pending RPR HIV (1&2) Ag & Ab Conf Pending Current Inpatient Medications Current Inpatient Medications: Current Inpatient Medications Acetaminophen (Acetaminophen 325 Mg Tab) 650 mg PO Q4H PRN PRN Reason: Headache or Minor Fever Stop: 07/31/23 23:58 Al Hydrox/Mg Hydrox/Simethicone (Aluminum/Magnesium Susp 30 Ml Udc) 30 ml PO Q4H PRN PRN Reason: GI Upset Stop: 07/31/23 23:58 Bismuth Subsalicylate (Bismuth Subsalicylate Liqd 236 Ml) 15 ml PO PRN PRN PRN Reason: Loose Stool Stop: 07/31/23 23:58 Buprenorphine HCl (Buprenorphine Hcl 8 Mg Subl) 8 mg SL TID [facility] Stop: 08/02/23 13:59 Clonidine HCl (Clonidine Hcl 0.1 Mg Tab) 0.1 mg PO Q2H PRN PRN Reason: For ANY 2 Symptoms Stop: 08/01/23 18:14 Last Admin: 07/02/23 18:31 Dose: 0.1 mg Clonidine HCl (Clonidine Hcl 0.1 Mg Tab) 0.1 mg PO Q4HWA [facility] Stop: 08/01/23 19:59 Last Admin: 07/03/23 12:04 Dose: 0.1 mg Diphenoxylate HCl/Atropine (Diphenoxylate/Atropine 2.5/0.025mg Tab) 1 tab PO Q4H PRN PRN Reason: Abdominal Cramping/Diarrhea Stop: 08/01/23 18:14 Doxycycline Hyclate (Doxycycline Hyclate 100 Mg Cap) 100 mg PO BID [facility] Stop: 07/12/23 20:59 Last Admin: 07/03/23 08:07 Dose: 100 mg Hydroxyzine HCl (Hydroxyzine Hcl 25 Mg Tab) 50 mg PO HSZ PRN PRN Reason: Insomnia Stop: 07/31/23 23:58 Last Admin: 07/02/23 20:59 Dose: 50 mg Hydroxyzine HCl (Hydroxyzine Hcl 25 Mg Tab) 25 mg PO Q4H PRN PRN Reason: Anxiety Stop: 07/31/23 23:58 Last Admin: 07/02/23 10:43 Dose: 25 mg Magnesium Hydroxide (Magnesium Hydroxide Susp 30 Ml Udc) 30 ml PO DAILY PRN PRN Reason: Constipation Stop: 07/31/23 23:58 Miscellaneous (Remove Nicoderm Patch) 1 each N/A DAILY@858 [facility] Stop: 08/02/23 08:58 Last Admin: 07/03/23 08:05 Dose: Not Given Nicotine (Nicotine 21 Mg/24 Hr Tdsy) 21 mg TD QAM [facility] Stop: 08/01/23 08:59 Last Admin: 07/03/23 08:06 Dose: 21 mg Nicotine Polacrilex (Nicotine Polacrilex 2 Mg Gum) 1 piece MT PRN PRN PRN Reason: Nicotine Withdrawal Stop: 08/01/23 02:20 Risperidone (Risperidone 1 Mg Tablet) 1 mg PO HS [facility] Stop: 08/01/23 21:59 Last Admin: 07/02/23 20:53 Dose: 1 mg Sodium Chloride (Sodium Chloride 0.65% Na Soln 45 Ml ([place])) 1 - 2 sprays NA PRN PRN PRN Reason: Nasal Dryness/Congestion Stop: 07/31/23 23:58
[2023-07-03] MEDS: buprenorphine HCL 8 MG SUBL SL SCH ×2 (13:51→20:54)
[2023-07-03] MEDS: risperiDONE 1 MG TABLET PO SCH (20:48)
[2023-07-03] MEDS: hydrOXYzine HCl 25 MG TAB PO PRN (20:50)
[2023-07-04] MEDS: cloNIDine HCL 0.1 MG TAB PO SCH ×4 (08:53→20:59)
[2023-07-04] MEDS: buprenorphine HCL 8 MG SUBL SL SCH ×3 (09:09→20:59)
[2023-07-04] MEDS: DOXYCYCLINE HYCLATE 100 MG CAP PO SCH ×2 (09:09→20:59)
[2023-07-04] MEDS: NICOTINE 21 MG/24 HR TDSY TD SCH (09:10)
--- NOTE | 2023-07-04 10:38 | Psychiatric Progress Note ---
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 All available data supports that he has not used stimulants or other substances that could precipitate psychosis recently. He exhibits fairly good insight into the likelihood that his beliefs and concerns aren't supported by reality and as a result does not feel impelled to act on them. 07/04/2023: HIV has returned non-reactive. Gliadin and Lyme Western blot pending - unlikely these will be available during his stay here. Pt volunteers plans he's making for after discharge; he intends to stay with his mother and return to work. When asked about his [id number] twins doesn't appear to have given much consideration to how he intends to participate in their life. Planning family meeting tomorrow. Tolerating risperidone, says he thinks "it's helping pull thoughts together" and helps him "worry less about those weird things" (referential delusions). 07/03/2023: Lyme Western blot and RPR remain pending but the balance of tests ordered yesterday were negative or noncontributory - glycohemoglobin was 5.8%. Pt continues to voice odd beliefs and to experience referential ideas. He's continued to voice the belief that his might not be real or that his mother may have (even after he's spoken with her on the phone). He has decided to go live with his mother since he has concluded that he and his can't remain (on the basis of nothing that he's able to explain to me). Affect is consistently incongruously cheerful even when discussing seemingly distressing topics. 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 I discussed this with pt at length, including the rationale for the diagnosis and how it supports the need for him to remain on the risperidone. Reports tolerating that medication with no adverse effects. Pt gave written notice of request for discharge last evening. 07/02/2023: At this point the differential diagnostic possibilities abound and range from primary thought disorders such as schizophreniform disorder, through delusional disorder or brief reactive psychosis, to organic brain syndromes (including Lyme borreliosis). Although he doesn't present as at all manic or significantly depressed, his impulsively lending his car to a stranger is noteworthy and could indicate a mood disorder with psychotic features. The use of psychoactive substances not reported on our toxicology screen cannot be ruled out. He may already be exhibiting a response to risperidone given on arrival to the unit. (1) Schizophreniform disorder: (2) Opioid use disorder, moderate, in early remission, on maintenance therapy, dependence: (3) Methamphetamine use disorder, severe, in early remission, dependence: Plan 07/03/2023: * continue risperidone 1 mg QHS * family meeting tomorrow * anticipate discharge following family meeting 07/02/2023: * continue risperidone 1 mg QHS * await labs not yet resulted, including * RPR * HIV * ceruloplasmin * gliadin antibodies * Lyme Western blot 07/01/2023: The patient was admitted to the [facility] ([facility]) on q15 min checks (behavioral with suicide precautions) for safety. The patient will participate in group, recreational, and milieu therapies and will be offered additional individual and family sessions as clinically appropriate. * risperidone 1 mg QHS * labs in addition to those already done in the ED to rule out identifiable and potentially-reversible causes of psychosis, including * RPR * HIV * ESR * ceruloplasmin * gliadin antibodies * folate * B12 * vitamin D * labs to establish baseline values in anticipation of future antipsychotic use, including * fasting lipids panel * glycohemoglobin level Inventory Assets Strengths: supportive relationships, has local supports,voluntary, fair insight, intelligent, employed, Needs: safety and stabilization, diagnostic assessment for recent-onset psychosis, medication adjustment, additional coping skills Suicide Risk Level Suicide Risk Level: Moderate (q15 min suicide checks) Suicide Risk Level Comments: denies any suicidal thoughts; behavior prior to admission appears to have been unpredictable and impulsive Risk Factors Assessment Male: Yes : Yes Do You Have Access To A Gun?: No Health Problems: No Mental Health Diagnoses: No Substance Use Disorders: Yes Previous Attempt: No Family History of Suicide: No Previous Psychiatric Hospitalization: No Hopelessness: No Protective Factors Assessment : Yes (refers to girlfriend as his ) Responsible for Young Children: Yes Employed: Yes Stable Relationships: Yes Supportive Family: Yes Good Rapport with Provider: Yes Interval History Identifying Information NELI ARZOLA is a 32-year-old M who currently lives with his girlfriend and their 4 children, including twins, has a history of methamphetamine and opioid use disorders, and was admitted on 07/01/23 23:01 on a 201 voluntary commitment for psychosis. Chief Complaint "[]". Review of Systems Sleep Information Total Hours of Sleep: 6.5 Sleep Comments: Admitted overnight Meal Information Percent Meal Consumed - Breakfast: 100 Percent Meal Consumed - Lunch: 100 Percent Meal Consumed - Dinner: 100 Subjective Subjective Patient was seen & assessed and interval progress reviewed in a multidisciplinary team meeting with the treatment team. For details, see the "Impression" section. Physical Exam Psychiatric Orientation: alert, oriented to person, oriented to place, oriented to time and cooperative (pleasant) Apperance: appropriately dressed and appropriately groomed Eye Contact: + fair eye contact Motor Behavior: steady gait and station and no abnormal motor movements; no psychomotor agitation and no psychomotor retardation Speech: normal rate/rhythm/volume of speech Affect: + constricted affect; + mood not congruent with affect (incongruously cheerful) Mood: + anxious mood Thought Process: linear/logical thought process, clear/coherent thought process, + concrete thought process and thought association intact Thought Content: + ideas of reference Suicidal Thoughts: denies suicidal thoughts, denies suicidal plan and denies suicidal intent Homicidal Thoughts: denies homicidal thoughts Hallucinations: no auditory hallucinations (but observers reported acting as if he were responding to internal stimuli) and no visual hallucinations Cognition: recent memory grossly intact, remote memory grossly intact, attention grossly intact and language grossly intact Estimated Intelligence: average estimated intelligence Insight: + fair insight (realizes ideas of reference likely not reality-based) Judgment: + fair judgement Vital Signs (Past 24 Hours) Last Vital Signs Temp 36.5 C 07/04/23 07:08 Pulse 63 07/04/23 07:08 Resp 16 07/04/23 07:08 BP 112/72 07/04/23 07:08 Pulse Ox 100 07/03/23 20:10 O2 Del Method Room Air 07/03/23 20:10 Results & Data ([facility]) Laboratory Results Laboratory Results - last 24 hr 07/03/23 07:42 RPR Nonreactive Current Inpatient Medications Current Inpatient Medications: Current Inpatient Medications Acetaminophen (Acetaminophen 325 Mg Tab) 650 mg PO Q4H PRN PRN Reason: Headache or Minor Fever Stop: 07/31/23 23:58 Al Hydrox/Mg Hydrox/Simethicone (Aluminum/Magnesium Susp 30 Ml Udc) 30 ml PO Q4H PRN PRN Reason: GI Upset Stop: 07/31/23 23:58 Bismuth Subsalicylate (Bismuth Subsalicylate Liqd 236 Ml) 15 ml PO PRN PRN PRN Reason: Loose Stool Stop: 07/31/23 23:58 Buprenorphine HCl (Buprenorphine Hcl 8 Mg Subl) 8 mg SL TID [facility] Stop: 08/02/23 13:59 Last Admin: 07/04/23 09:09 Dose: 8 mg Clonidine HCl (Clonidine Hcl 0.1 Mg Tab) 0.1 mg PO Q2H PRN PRN Reason: For ANY 2 Symptoms Stop: 08/01/23 18:14 Last Admin: 07/02/23 18:31 Dose: 0.1 mg Clonidine HCl (Clonidine Hcl 0.1 Mg Tab) 0.1 mg PO Q4HWA [facility] Stop: 08/01/23 19:59 Last Admin: 07/04/23 08:53 Dose: Not Given Diphenoxylate HCl/Atropine (Diphenoxylate/Atropine 2.5/0.025mg Tab) 1 tab PO Q4H PRN PRN Reason: Abdominal Cramping/Diarrhea Stop: 08/01/23 18:14 Doxycycline Hyclate (Doxycycline Hyclate 100 Mg Cap) 100 mg PO BID [facility] Stop: 07/12/23 20:59 Last Admin: 07/04/23 09:09 Dose: 100 mg Hydroxyzine HCl (Hydroxyzine Hcl 25 Mg Tab) 50 mg PO HSZ PRN PRN Reason: Insomnia Stop: 07/31/23 23:58 Last Admin: 07/03/23 20:50 Dose: 50 mg Hydroxyzine HCl (Hydroxyzine Hcl 25 Mg Tab) 25 mg PO Q4H PRN PRN Reason: Anxiety Stop: 07/31/23 23:58 Last Admin: 07/02/23 10:43 Dose: 25 mg Magnesium Hydroxide (Magnesium Hydroxide Susp 30 Ml Udc) 30 ml PO DAILY PRN PRN Reason: Constipation Stop: 07/31/23 23:58 Miscellaneous (Remove Nicoderm Patch) 1 each N/A DAILY@0859 [facility] Stop: 08/02/23 08:58 Last Admin: 07/04/23 09:08 Dose: Not Given Nicotine (Nicotine 21 Mg/24 Hr Tdsy) 21 mg TD QAM [facility] Stop: 08/01/23 08:59 Last Admin: 07/04/23 09:10 Dose: 21 mg Nicotine Polacrilex (Nicotine Polacrilex 2 Mg Gum) 1 piece MT PRN PRN PRN Reason: Nicotine Withdrawal Stop: 08/01/23 02:20 Risperidone (Risperidone 1 Mg Tablet) 1 mg PO HS [facility] Stop: 08/01/23 21:59 Last Admin: 07/03/23 20:48 Dose: 1 mg Sodium Chloride (Sodium Chloride 0.65% Na Soln 45 Ml ([place])) 1 - 2 sprays NA PRN PRN PRN Reason: Nasal Dryness/Congestion Stop: 07/31/23 23:58
[2023-07-04] MEDS: hydrOXYzine HCl 25 MG TAB PO PRN (17:52)
[2023-07-04] MEDS: risperiDONE 1 MG TABLET PO SCH (20:59)
[2023-07-05 02:37] LABS: Ceruloplasmin 28 mg/dL (18-36); Gliadin Deamidated IgA Ab <1.0 U/mL; Gliadin Deamidated IgG Ab <1.0 U/mL
[2023-07-05] MEDS: cloNIDine HCL 0.1 MG TAB PO SCH (08:40)
[2023-07-05] MEDS: NICOTINE 21 MG/24 HR TDSY TD SCH (08:40)
[2023-07-05] MEDS: DOXYCYCLINE HYCLATE 100 MG CAP PO SCH (08:40)
--- NOTE | 2023-07-05 09:07 | Discharge Summary ---
Date of Service July 05, 2023 History of Present Illness As part of a thorough review of the available medical records, I have read and confirmed the following notes by the ED physicians on the day of admission and 2 days previously: 06/19/2023 "The patient is a pleasant 40-year-old gentleman with a past medical history of remote substance abuse on buprenorphine, history of anxiety who presents to the emergency department via walk-in, by security after the patient was upstairs in labor and delivery visiting with his partner who had delivered twins recently. Per bystanders the patient became acutely restless and confused and had made statements such as feeling as though the patient's par tner was not the mother of the children and that his mother had been though she was present in the hospital room. Patient apparently had left the room abruptly and was encountered by security in the parking lot where they noted he had some peculiar behavior but it was not as severe as was described to them. He agreed to come to the emergency department for evaluation and upon evaluation by case management and this provider he had rapidly improved and exhibited rational thinking, insight into his condition. On my evaluation patient is well-appearing in no distress, afebrile with bl ood pressure 160s/90s and vital signs otherwise stable. He acknowledges underlying anxiety and restlessness. He denies any depression or hopelessness. In fact he feels hopeful that he can get his anxiety under control. He acknowledges that he may have felt additional stress related to the recent of twins. He does not feel he needs inpatient psychiatric treatment. He is interested and was provided with outpatient resources for follow-up. Patient previously had been on medications but knowledges he did not continue follow-up for these but had been on hydroxyzine as well as Lexapro. We did agree to provide a short term prescription of hydroxyzine for flares of anxiety as needed. Otherwise, plan for continued outpatient follow-up. Psychiatric cyanide case hardener did complete evaluation and there is no indication for involuntary psychiatric treatment at this time." "Following the patient's discharge we were informed that in the process of the patient's erratic behavior and abruptly leaving the hospital he had given his car and car keys to an individual. Subsequently security had become involved and ensured that the patient's car was returned to him. Additionally, following the patient's discharge we were provided with more details from security regarding report from family and staff upstairs. They report that they were told that the patient became erratic and had made comments that were delusional and that he thought that his partner who had delivered the twins was not the twins mother after all. Additionally they reported that the patient insisted that his mother was but she was present in the room. Security confirms that when he comes the patient in the parking lot to bring him to the emergency department he appeared peculiar but did not have the severity of symptoms that was described to them. Moreover, upon our evaluation the emergency department the patient had rapidly improved and was appropriate and insightful. Thus, new information does not change assessment and that it was suspected that the patient experienced a stress reaction in the setting of underlying anxiety. Further, the patient was reported to have returned upstairs to visit with family." 07/01/2023: "Patient is a 32-year-old male who presents to the ER following feeling weak and rundown. Symptoms of been present for the past 3 weeks. He notes he feels very anxious and stressed. Denies any headache or change in vision. No chest pain or shortness of breath. No belly pain, nausea, vomiting, or diarrhea. No dysuria, urgency or frequency. No other exacerbating or remitting factors. Patient questions if this is his Lyme's disease which she had once when he was 19. 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 No recent tick bites. Labs show no significant leukocytosis or anemia. BMP along with LFTs bilirubin was unremarkable. UA was clean. Doxycycline was given due to the equivocal IgM with the diffuse myalgias and arthralgias. He is also having hallucinations and does not want to come in from a psychiatric standpoint. He was discussed with 3 S. and admitted for further work-up. Will continue doxycycline 100 mg twice a day for 10 days with the equivocal Lyme testing." and the following notes by the ED psychiatric case finisher on the day of admission and 2 days previously: 06/29/2023: "Met with the patient to complete Brief and Suicide Risk Assessments. The patient denies any suicidal or homicidal ideations but reports high levels of anxiety where he feels overwhelmed and cant breathe. He reports a long trauma history related to his father not being around, being in a 14 year relationship where his girlfriend cheated on him and being in and out of alf for stealing. He reports he compares his current girlfriend to his previous one and feels regret and guilt about that as well as guilt for not being around his previous girlfriend due to being in and out of alf (states he cant blame her looking back for cheating on him). The patient reports he is looking for either a psychiatrist or psychologist who can help him get to the bottom of his trauma history and possibly start him on medication for his anxiety (reports having a counselor in the past but they never got too deep into his trauma history). Patient able to stay on topic during assessment and answers questions appropriately." "At the request of Dr. Rush, spoke with Juancho in Security regarding the patients presentation to them. Juancho reports the patient was making comments to his girlfriend and nursing staff that he doesnt believe the girlfriend is real and he created her. Juancho also reports the patient made statements that his mother was killed in a house fire but she is currently on the mother / b joann unit. Juancho reports when the patient was outside, he made comments he wasnt sure if he was actually the father of his children and that he wasnt sure if he wanted to be with the mother any longer. Juancho reports when they initially had contact with the patient on the mother / baby unit, he was agreeable to being evaluated in the ER, but then appeared to possibly be responding to internal stimuli and stated he didnt want that and left the building. He reports they followed him outside and when he got there, he gave his car keys to someone and stated he had been selfish in his life and needed to be generous to him. Juancho reports the patients demeanor changed once he was brought back into the ER (willingly) and that the patient had been back to the mother / baby unit (no issues) and was currently in the parking lot and actually left during this conversation. Dr. Rush updated and feels the patient was under better behavioral control when he and CM met with the patient and that this did not change the disposition." 07/01/2023: "Pt was seen in ED 2 days ago. He states he has been feeling slightly better than he was then, but is still struggling with thinking that people in his life are not real or that he himself is not real. He states he thinks his girlfriend and babies aren't real or his grandmother. He also stated 2 days ago that his mother had in a house fire, but she is alive and lives locally. Pt reports thinking he said this because he was seeing all kinds of "signs" that pointed to fire and and therefore his brain could not stop thinking that his mother had in a fire. Pt reports seeing "signs" everywhere recently. He states he has been having these thoughts/feelings for approximately 2 months now and that they have been getting strong/worse. Pt states he keeps thinking that something traumatic has happened and he therefore is imagining all of these people in his life so that he doesn't have to deal with the trauma. Struggles to determine what is real and what's not. Pt also struggles with anxiety, though he has no official mental health diagnosis. He reports past drug abuse of "everything" but mostly meth. He sta [facility] he has been clean for approximately 5 months now. He is prescribed Subutex, 8mg 2 3/4 times per day.": Review of the medical record reveals no previous or outside psychiatric records. Appears to be on buprenorphine at a fairly high dose, without naloxone (due to reported naloxone allergy). Review of pertinent labs reveals they are significant for equivocal Lyme IgM antibody test; more-detailed test results are pending. Urine toxicology screen that was negative for all tested substrates. BAL was <10 mg/dL. Pt presented to the ED as above on June 29 2023, then again on the day of admission 2 days later. This took place in the context of of twins around which time he made odd statements including the feeling that his girlfriend (to whom he referred as his "" while telling me of this) and their twins "weren't real" and that his own mother (who was present in the room) had in a fire. He handed his car keys over to someone in the parking lot so they could do some errands, apparently on the basis of his having acted selfishly in the past and feeling a need to atone for that. The car was found at [facility] where the person had said he needed to go and the person returned it to pt. Despite the odd statements and behaviors he was seen as exhibiting fairly appropriate behavioral control and insight and referred for outpatient treatment. Pt returned last night voicing concern that Lyme disease (for which he had been treated with 2 weeks of doxycycline at age 19 after a witnessed tick bite followed by target rash) had affected his brain leading to "weird thoughts" over the past 2 months. He voiced being preoccupied with "signs everywhere". These include "vipin numbers" such as noticing that the time or date on his phone is the same digit repeated (e.g., 06/13, 2:22, 4:44, etc) or when digits are repeated in callers' phone numbers, on license plates, etc. He isn't sure what meaning these contain but has "spent lots of time trying to figure it out". He finds his attention drawn to certain arrangements of objects or juxtaposition of colors then "wondering if it might mean something". He intermittently has "the feeling that people might not be real", especially his girlfriend and his mother. He currently says that he'd wondered if the twins were actually his children, not actually whether they were real or not. Pt is preoccupied that he "probably had some sort of trauma" and needs to "get to the bottom of that" in order to move ahead in life. However, he can't think of any particular trauma (his various incarcerations he sees as more just as inconvenient things that occasionally happen to a person). He presumes there must be some such thing because he thoughts seem so weird to him "or else it must be Lyme". He denies hallucin ations, though some recent observers at this hospital thought he appeared to be responding to internal stimuli. Has used "all the drugs", but especially methamphetamine, since his teens and attributes many problems to this. He says he's been completely abstinent "except for a little alcohol" for the past 5 months. He thinks he "had all kinds of weird experiences similar to the currently-reported ones while using and was optimistic when he didn't have any for the first couple of months after he stopped using "but they've come back". Reports "feeling much better this morning", which he attributes to "the antibiotic they gave me last night". He did in fact get doxycycline but also got 1 mg risperidone ODT on arrival to the unit. Physical Exam Psychiatric Orientation: alert, oriented to person, oriented to place, oriented to time and cooperative (pleasant) Apperance: appropriately dressed and appropriately groomed Eye Contact: + fair eye contact Motor Behavior: steady gait and station and no abnormal motor movements; no psychomotor agitation and no psychomotor retardation Speech: normal rate/rhythm/volume of speech Affect: + constricted affect; + mood not congruent with affect (incongruously cheerful) Mood: + anxious mood Thought Process: + looseness of associations and + concrete thought process Thought Content: + delusions and + ideas of reference Suicidal Thoughts: denies suicidal thoughts, denies suicidal plan and denies suicidal intent Homicidal Thoughts: denies homicidal thoughts Hallucinations: no auditory hallucinations (but observers reported acting as if he were responding to internal stimuli) and no visual hallucinations Cognition: recent memory grossly intact, remote memory grossly intact, attention grossly intact and language grossly intact Estimated Intelligence: average estimated intelligence Insight: + fair insight (realizes ideas of reference likely not reality-based) Judgment: + fair judgement Vital Signs (Past 24 Hours) Last Vital Signs Temp 36.6 C 07/05/23 08:54 Pulse 67 07/05/23 08:54 Resp 18 07/05/23 08:54 BP 148/78 H 07/05/23 08:54 Pulse Ox 98 07/05/23 08:54 O2 Del Method Room Air 07/04/23 21:04 See admission H&P and DOD assessment. Principal Diagnosis Schizophreniform disorder Psychiatric Data See daily stay summary. In short, safety was maintained and the patient was cooperative with care. Medication changes included additionn of risperidone and they tolerated this well. A family session was held and safety plan was completed prior to discharge. Day of Discharge Assessment Today the patient voices readiness for discharge. They note improvement in mood and deny thoughts to harm self or others. Thoughts remain organized and they are improved from admission. There is no evidence of psychosis. They agree to take mediations as prescribed and keep follow-up appointments. They are stable for discharge to outpatient level of care. Transition of Care Transition Of Care Record: was reviewed with the patient Advance Directives Advance Directives Information Provided: Yes Advance Directives: No Mental Health Advance Directive: No Advance Directives on File: No Living Will: No Power of Block Cutter: No Advance Directives Reason:: Declines as Mental Health Visit. Suicide Risk Level Suicide Risk Level: Low (q15 min observation checks) Suicide Risk Level Comments: denies any suicidal thoughts; behavior prior to admission appears to have been unpredictable and impulsive Risk Factors Assessment Male: Yes : Yes Do You Have Access To A Gun?: No Health Problems: No Mental Health Diagnoses: No Substance Use Disorders: Yes Previous Attempt: No Family History of Suicide: No Previous Psychiatric Hospitalization: No Hopelessness: No Protective Factors Assessment : Yes (refers to girlfriend as his ) Responsible for Young Children: Yes Employed: Yes Stable Relationships: Yes Supportive Family: Yes Good Rapport with Provider: Yes Total Time Total Time Spent: Greater Than 30 Minutes Total Time Includes: Examination of the patient, Discharge Planning, Medication Reconciliation and As well as (documentation) Discharge Data Lab Results 07/01/23 07/01/23 07/01/23 16:38 16:40 16:40 WBC 10.63 RBC 4.97 Hgb 14.5 Hct 42.5 MCV 85.5 MCH 29.2 MCHC 34.1 RDW Std Deviation 42.8 RDW Coeff of Vidya 13.7 Plt Count 215 MPV 10.4 Immature Gran % (Auto) 0.2 Neut % (Auto) 72.0 Lymph % (Auto) 21.0 [place] % (Auto) 5.6 Eos % (Auto) 0.8 Baso % (Auto) 0.4 Neut # (Auto) 7.66 H Lymph # (Auto) 2.23 [place] # (Auto) 0.59 Eos # (Auto) 0.09 Baso # (Auto) 0.04 Immature Gran # (Auto) 0.02 ESR Sodium Potassium Chloride Carbon Dioxide Anion Gap BUN Creatinine Est Cr Clr Drug Dosing Est GFR ( Amer) Est GFR (Non-Af Amer) BUN/Creatinine Ratio Glucose Estimat Average Glucose Hemoglobin A1c Calcium Total Bilirubin AST ALT Alkaline Phosphatase Total Protein Albumin Globulin Albumin/Globulin Ratio Ceruloplasmin Triglycerides Cholesterol LDL Cholesterol, Calc VLDL Cholesterol, Calc HDL Cholesterol Cholesterol/HDL Ratio Vitamin B12 25-OH Vitamin D Total Folate Urine Color Urine Appearance Urine pH Ur Specific [place] Urine Protein Urine Glucose (UA) Urine Ketones Urine Blood Urine Nitrite Urine Bilirubin Urine Urobilinogen Ur Leukocyte Esterase Salicylates Urine Opiates Screen Ur Methadone, Qual Acetaminophen Urine Barbiturates Ur Phencyclidine (PCP) U Amphetamin/Meth Scrn MDMA (Ecstasy) Screen U Benzodiazepines Scrn Ur Cocaine Metabolite U Marijuana (THC) Screen Ethyl Alcohol mg/dL Gliadin (Deamidat) IgG Gliadin (Deamidat) IgA RPR Lyme Disease IgG Ab Negative Lyme Disease IgM Ab Equivocal A SARS-CoV-2 (PCR) NEGATIVE Monoscreen Negative HIV (1&2) Ag & Ab Conf Influenza Type A (PCR) Negative Influenza Type B (PCR) Negative RSV (RT-PCR) Negative 07/01/23 07/01/23 07/01/23 16:40 19:24 19:24 WBC RBC Hgb Hct MCV MCH MCHC RDW Std Deviation RDW Coeff of Vidya Plt Count MPV Immature Gran % (Auto) Neut % (Auto) Lymph % (Auto) [place] % (Auto) Eos % (Auto) Baso % (Auto) Neut # (Auto) Lymph # (Auto) [place] # (Auto) Eos # (Auto) Baso # (Auto) Immature Gran # (Auto) ESR Sodium 137 Potassium 3.7 Chloride 102 Carbon Dioxide 28 Anion Gap 7 BUN 19 Creatinine 1.03 Est Cr Clr Drug Dosing 101.5 Est GFR ( Amer) 112.5 Est GFR (Non-Af Amer) 97.0 BUN/Creatinine Ratio 18.4 Glucose 99 Estimat Average Glucose Hemoglobin A1c Calcium 9.3 Total Bilirubin 0.3 AST 18 ALT 12 Alkaline Phosphatase 62 Total Protein 7.3 Albumin 4.5 Globulin 2.8 Albumin/Globulin Ratio 1.6 Ceruloplasmin Triglycerides Cholesterol LDL Cholesterol, Calc VLDL Cholesterol, Calc HDL Cholesterol Cholesterol/HDL Ratio Vitamin B12 25-OH Vitamin D Total Folate Urine Color Yellow Urine Appearance Clear Urine pH 7.5 Ur Specific [place] 1.010 Urine Protein Negative Urine Glucose (UA) Negative Urine Ketones Negative Urine Blood Negative Urine Nitrite Negative Urine Bilirubin Negative Urine Urobilinogen Negative Ur Leukocyte Esterase Negative Salicylates Urine Opiates Screen Neg Ur Methadone, Qual Neg Acetaminophen Urine Barbiturates Neg Ur Phencyclidine (PCP) Neg U Amphetamin/Meth Scrn Neg MDMA (Ecstasy) Screen Neg U Benzodiazepines Scrn Neg Ur Cocaine Metabolite Neg U Marijuana (THC) Screen Neg Ethyl Alcohol mg/dL Gliadin (Deamidat) IgG Gliadin (Deamidat) IgA RPR Lyme Disease IgG Ab Lyme Disease IgM Ab SARS-CoV-2 (PCR) Monoscreen HIV (1&2) Ag & Ab Conf Influenza Type A (PCR) Influenza Type B (PCR) RSV (RT-PCR) 0807/01/23 07/03/23 20:31 20:31 07:42 WBC RBC Hgb Hct MCV MCH MCHC RDW Std Deviation RDW Coeff of Vidya Plt Count MPV Immature Gran % (Auto) Neut % (Auto) Lymph % (Auto) [place] % (Auto) Eos % (Auto) Baso % (Auto) Neut # (Auto) Lymph # (Auto) [place] # (Auto) Eos # (Auto) Baso # (Auto) Immature Gran # (Auto) ESR 13 Sodium Potassium Chloride Carbon Dioxide Anion Gap BUN Creatinine Est Cr Clr Drug Dosing Est GFR ( Amer) Est GFR (Non-Af Amer) BUN/Creatinine Ratio Glucose Estimat Average Glucose Hemoglobin A1c Calcium Total Bilirubin AST ALT Alkaline Phosphatase Total Protein Albumin Globulin Albumin/Globulin Ratio Ceruloplasmin Triglycerides Cholesterol LDL Cholesterol, Calc VLDL Cholesterol, Calc HDL Cholesterol Cholesterol/HDL Ratio Vitamin B12 25-OH Vitamin D Total Folate Urine Color Urine Appearance Urine pH Ur Specific [place] Urine Protein Urine Glucose (UA) Urine Ketones Urine Blood Urine Nitrite Urine Bilirubin Urine Urobilinogen Ur Leukocyte Esterase Salicylates < 3.0 L Urine Opiates Screen Ur Methadone, Qual Acetaminophen < 3 L Urine Barbiturates Ur Phencyclidine (PCP) U Amphetamin/Meth Scrn MDMA (Ecstasy) Screen U Benzodiazepines Scrn Ur Cocaine Metabolite U Marijuana (THC) Screen Ethyl Alcohol mg/dL < 10.0 Gliadin (Deamidat) IgG Gliadin (Deamidat) IgA RPR Lyme Disease IgG Ab Lyme Disease IgM Ab SARS-CoV-2 (PCR) Monoscreen HIV (1&2) Ag & Ab Conf Influenza Type A (PCR) Influenza Type B (PCR) RSV (RT-PCR) 07/03/23 07/03/23 07/03/23 07:42 07:42 07:42 WBC RBC Hgb Hct MCV MCH MCHC RDW Std Deviation RDW Coeff of Vidya Plt Count MPV Immature Gran % (Auto) Neut % (Auto) Lymph % (Auto) [place] % (Auto) Eos % (Auto) Baso % (Auto) Neut # (Auto) Lymph # (Auto) [place] # (Auto) Eos # (Auto) Baso # (Auto) Immature Gran # (Auto) ESR Sodium Potassium Chloride Carbon Dioxide Anion Gap BUN Creatinine Est Cr Clr Drug Dosing Est GFR ( Amer) Est GFR (Non-Af Amer) BUN/Creatinine Ratio Glucose Estimat Average Glucose 120 Hemoglobin A1c 5.8 H Calcium Total Bilirubin AST ALT Alkaline Phosphatase Total Protein Albumin Globulin Albumin/Globulin Ratio Ceruloplasmin Triglycerides 113 Cholesterol 153 LDL Cholesterol, Calc 79 VLDL Cholesterol, Calc 23 HDL Cholesterol 51 Cholesterol/HDL Ratio 3.0 Vitamin B12 559 25-OH Vitamin D Total Folate 14.10 Urine Color Urine Appearance Urine pH Ur Specific [place] Urine Protein Urine Glucose (UA) Urine Ketones Urine Blood Urine Nitrite Urine Bilirubin Urine Urobilinogen Ur Leukocyte Esterase Salicylates Urine Opiates Screen Ur Methadone, Qual Acetaminophen Urine Barbiturates Ur Phencyclidine (PCP) U Amphetamin/Meth Scrn MDMA (Ecstasy) Screen U Benzodiazepines Scrn Ur Cocaine Metabolite U Marijuana (THC) Screen Ethyl Alcohol mg/dL Gliadin (Deamidat) IgG Gliadin (Deamidat) IgA RPR Lyme Disease IgG Ab Lyme Disease IgM Ab SARS-CoV-2 (PCR) Monoscreen HIV (1&2) Ag & Ab Conf Influenza Type A (PCR) Influenza Type B (PCR) RSV (RT-PCR) 07/03/23 07/03/23 07/03/23 07:42 07:42 07:42 WBC RBC Hgb Hct MCV MCH MCHC RDW Std Deviation RDW Coeff of Vidya Plt Count MPV Immature Gran % (Auto) Neut % (Auto) Lymph % (Auto) [place] % (Auto) Eos % (Auto) Baso % (Auto) Neut # (Auto) Lymph # (Auto) [place] # (Auto) Eos # (Auto) Baso # (Auto) Immature Gran # (Auto) ESR Sodium Potassium Chloride Carbon Dioxide Anion Gap BUN Creatinine Est Cr Clr Drug Dosing Est GFR ( Amer) Est GFR (Non-Af Amer) BUN/Creatinine Ratio Glucose Estimat Average Glucose Hemoglobin A1c Calcium Total Bilirubin AST ALT Alkaline Phosphatase Total Protein Albumin Globulin Albumin/Globulin Ratio Ceruloplasmin Triglycerides Cholesterol LDL Cholesterol, Calc VLDL Cholesterol, Calc HDL Cholesterol Cholesterol/HDL Ratio Vitamin B12 25-OH Vitamin D Total 42.8 Folate Urine Color Urine Appearance Urine pH Ur Specific [place] Urine Protein Urine Glucose (UA) Urine Ketones Urine Blood Urine Nitrite Urine Bilirubin Urine Urobilinogen Ur Leukocyte Esterase Salicylates Urine Opiates Screen Ur Methadone, Qual Acetaminophen Urine Barbiturates Ur Phencyclidine (PCP) U Amphetamin/Meth Scrn MDMA (Ecstasy) Screen U Benzodiazepines Scrn Ur Cocaine Metabolite U Marijuana (THC) Screen Ethyl Alcohol mg/dL Gliadin (Deamidat) IgG Gliadin (Deamidat) IgA RPR Nonreactive Lyme Disease IgG Ab Lyme Disease IgM Ab SARS-CoV-2 (PCR) Monoscreen HIV (1&2) Ag & Ab Conf NON-REACTIVE Influenza Type A (PCR) Influenza Type B (PCR) RSV (RT-PCR) 07/03/23 07:42 WBC RBC Hgb Hct MCV MCH MCHC RDW Std Deviation RDW Coeff of Vidya Plt Count MPV Immature Gran % (Auto) Neut % (Auto) Lymph % (Auto) [place] % (Auto) Eos % (Auto) Baso % (Auto) Neut # (Auto) Lymph # (Auto) [place] # (Auto) Eos # (Auto) Baso # (Auto) Immature Gran # (Auto) ESR Sodium Potassium Chloride Carbon Dioxide Anion Gap BUN Creatinine Est Cr Clr Drug Dosing Est GFR ( Amer) Est GFR (Non-Af Amer) BUN/Creatinine Ratio Glucose Estimat Average Glucose Hemoglobin A1c Calcium Total Bilirubin AST ALT Alkaline Phosphatase Total Protein Albumin Globulin Albumin/Globulin Ratio Ceruloplasmin 28 Triglycerides Cholesterol LDL Cholesterol, Calc VLDL Cholesterol, Calc HDL Cholesterol Cholesterol/HDL Ratio Vitamin B12 25-OH Vitamin D Total Folate Urine Color Urine Appearance Urine pH Ur Specific [place] Urine Protein Urine Glucose (UA) Urine Ketones Urine Blood Urine Nitrite Urine Bilirubin Urine Urobilinogen Ur Leukocyte Esterase Salicylates Urine Opiates Screen Ur Methadone, Qual Acetaminophen Urine Barbiturates Ur Phencyclidine (PCP) U Amphetamin/Meth Scrn MDMA (Ecstasy) Screen U Benzodiazepines Scrn Ur Cocaine Metabolite U Marijuana (THC) Screen Ethyl Alcohol mg/dL Gliadin (Deamidat) IgG <1.0 Gliadin (Deamidat) IgA <1.0 RPR Lyme Disease IgG Ab Lyme Disease IgM Ab SARS-CoV-2 (PCR) Monoscreen HIV (1&2) Ag & Ab Conf Influenza Type A (PCR) Influenza Type B (PCR) RSV (RT-PCR) Hospital Course (1) Schizophreniform disorder: (2) Opioid use disorder, moderate, in early remission, on maintenance therapy, dependence: (3) Methamphetamine use disorder, severe, in early remission, dependence: Plan 07/03/2023: * continue risperidone 1 mg QHS * family meeting tomorrow * anticipate discharge following family meeting 07/02/2023: * continue risperidone 1 mg QHS * await labs not yet resulted, including * RPR * HIV * ceruloplasmin * gliadin antibodies * Lyme Western blot 07/01/2023: The patient was admitted to the [facility] ([facility] mental health unit) on q15 min checks (behavioral with suicide precautions) for safety. The patient will participate in group, recreational, and milieu therapies and will be offered additional individual and family sessions as clinically appropriate. * risperidone 1 mg QHS * labs in addition to those already done in the ED to rule out identifiable and potentially-reversible causes of psychosis, including * RPR * HIV * ESR * ceruloplasmin * gliadin antibodies * folate * B12 * vitamin D * labs to establish baseline values in anticipation of future antipsychotic use, including * fasting lipids panel * glycohemoglobin level Mental Health & Subst Abuse Tx Psychiatrist Name of Psychiatrist: John Jacobo Psychiatrist's Date Of Appointment With Psychiatric Provider: 07/05/23 Time of Appointment with Psychiatrist: 11:30 AM Psychiatric Appointment Comment: [address] [place], [place] [id number] Psychiatrist Release of Information: Obtained, Reviewed and Signed Therapist Name of Therapist: [facility] - Intake with Deepa Therapist's Date of Therapist Appointment: 07/12/23 Time of Therapist Appointment: 10:30 AM Therapy Appointment Comment: [address] [facility], [address], [place] [address] Therapist Release of Information: Obtained, Reviewed and Signed Post Discharge Appointments Primary Care Physician Name Of Family Doctor/PCP: John Jacobo [facility] Time of Appointment with PCP: [address] [place], [place] [id number] Provider Appointment Comment: Please follow-up with your PCP as needed. Primary Care Release of Information: Obtained, Reviewed and Signed Contact Information Discharge Discharge Address: [address] [place] [address] [place] [address] Discharge Plan Discharge Items Patient Disposition: Home - Self-Care Reason For Visit: PSYCHOSIS NOS Discharge Diagnosis: Schizophreniform disorder Activity: Resume your previous activity Non-emergency contact: Primary Care Provider and Psychiatrist Call non-emergency contact if: you have any medication questions and your symptoms worsen Follow-up/Referrals: PCP,NO [Primary Care Provider] - Diet: Regular Addtl Attending Provider Instructions: SPECIAL CARE INSTRUCTIONS: 1. Follow through with your scheduled aftercare appointments. If unable to keep an appointment, please call to reschedule. 2. Take your medication only as prescribed. Medication should not be changed or stopped without the approval of your doctor. In the event of worsening symptoms or concerns about side effects, contact your doctor immediately. 3. Utilize new healthy coping skills, anger management skills, and stress management skills learned during your hospitalization. Journal feelings and process them with a support person. Identify stressors or situations that may result in relapse, deterioration or inappropriate behaviors and develop a plan to deal with those issues. 4. If your coping skills are ineffective and you are in crisis, contact your outpatient providers for direction. If unable to reach your providers, please call the [facility] CRISIS LINE AT , go to the [facility] walk-in center at [address] [place] [address] A, [place], or go to the closest Emergency Room. 5. Avoid alcohol and un-prescribed drugs. 6. You have been provided with the Mental Health Advance Directives Pamphlet for your review. 7. Your condition is stable for discharge to outpatient level of care, but recovery is an ongoing process. Ifthoughts to harm yourself or others return, follow the safety plan developed during your stay. Planning for a safe return home includes securing weapons. Our treatment team recommends weaponsbe removed from the home until your outpatient provider reassesses your progress. In rare cases where the items themselvescannot be removed, guns and ammunitionshould be secured separatelyand keys stored by a reliable personoutside of the home. If you were admitted on an involuntary commitment, the police or other legal authorities may be involved in this process. AFTERCARE APPOINTMENTS: * Please call your insurance company prior to your scheduled appointment to confirm your aftercare providers are covered. Take your insurance information to your appointments. WHO TO CALL AND WHEN: Medical Emergencies: For questions or emergencies related to your hospital stay, please contact the Inpatient Behavioral Health Unit at [phone]. A heel attacher wood is on-call 29/05 for the Behavioral Health Unit for emergencies At any time you feel your situation is an emergency, you may also call 911 immediately. Pending Studies at Discharge: Yes Studies:: Lyme Western blot, Gliadin antibodies Stand-Alone Forms: My [facility], Smoking Cessation Medications and DC Order Prescriptions: New doxycycline hyclate 100 mg tablet 100 mg PO BID 10 Days Qty: 20 0RF doxycycline hyclate 100 mg Capsule 100 mg PO BID 9 Days Qty: 18 0RF risperidone 1 mg Tablet 1 mg PO HS 30 Days Qty: 30 0RF Continued buprenorphine HCl 8 mg tablet, sublingual 24 mg SUBLINGUAL DAILY Rx Instructions: 3 tablet dose hydroxyzine HCl 25 mg tablet 25 mg PO TID PRN (Reason: anxiety) Qty: 14 0RF Discharge Orders: Discharge Order (Routine); Ordered 07/05/23 Ordered By: Casimiro Robledo Admission Data Admit Date/Time: 07/01/23 23:01 Attending Provider: Casimiro Robledo Admit Provider: Casimiro Robledo Primary Care Provider: PCP,NO Other Interventions: Discharge Summary Assessment (RN) Last Done: 07/05/23 08:54 PSY Interdisciplinary Discharge Planning Last Done: 07/05/23 09:00 Coding Level of Care Code 26615 D/C day mgmt > 30 min Diagnoses Schizophreniform disorder F20.81 Opioid use disorder, moderate, in early remission, on maintenance therapy, dependence F11.21 Methamphetamine use disorder, severe, in early remission, dependence F15.21 Time Spent (min) 33
[2023-07-05] MEDS: buprenorphine HCL 8 MG SUBL SL SCH (09:45)
[2023-07-05 11:57] LABS: 18KDIGG Band REACTIVE; 23KDIGG Band NON-REACTIVE; 23KDIGM Band REACTIVE; 28KDIGG Band NON-REACTIVE; 30KDIGG Band NON-REACTIVE; 39KDIGG Band NON-REACTIVE; 39KDIGM Band NON-REACTIVE; 41KDIGG Band REACTIVE; 41KDIGM Band NON-REACTIVE; 45KDIGG Band NON-REACTIVE; 58KDIGG Band NON-REACTIVE; 66KDIGG Band NON-REACTIVE; 93KDIGG Band NON-REACTIVE; Lyme Antibodies, WB IgG NEGATIVE (NEGATIVE); Lyme Antibodies, WB IgM NEGATIVE (NEGATIVE)
== END 2023-07-05 09:46 | disposition home or self-care (01) | DRG 885 ==
LOC: ED 16:18 → 3S 23:28